=== PATIENT | male | born 1955 | race Caucasian/White ===

== ENCOUNTER 2017-09-01 09:38 | Inpatient (IN) | payer BC ==
[2017-09-01] MEDS: HYDROmorphone 2 MG/ML Syringe IV PRN ×2 (10:20→22:36)
[2017-09-01] MEDS ORDERED: Sodium Chloride 0.9% 10 ML Syringe FLUSH PRN (10:23)
[2017-09-01] MEDS ORDERED: Sodium Chloride 0.9% 500 ML IV SCH (10:30)
[2017-09-01] MEDS ORDERED: metroNIDAZOLE/Normal Saline 100 ML ONE (11:14)
[2017-09-01] MEDS: metroNIDAZOLE/Normal Saline 500 MG in Premix Bag 1 BAG IV SCH ×2 (11:18→18:27)
[2017-09-01] MEDS: Dextrose 5%-0.9% NaCl 1,000 ML IV SCH ×2 (12:33→22:45)
--- NOTE | 2017-09-01 12:52 | CR ---
DATE OF SERVICE: 09/01/2017 CLINICAL DATA: Pain in right ankle and joints of right foot. RIGHT ANKLE: No priors. There is soft tissue swelling over the medial and lateral malleoli. There is a mildly displaced oblique fracture through the distal fibular metaphysis. No other fractures. No dislocation. 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 There is a plantar calcaneal spur. IMPRESSION: Fracture distal fibula. Other findings as discussed above. [id number] [facility]
[2017-09-01] MEDS ORDERED: Nicotine 14 MG/24 Hr Patch ONE (13:21)
[2017-09-01] MEDS ORDERED: Ketorolac 30 MG/ML SDV ONE (14:41)
[2017-09-01] MEDS: Acetaminophen 650 MG Tab.ER PO SCH ×3 (14:45→23:10)
[2017-09-01] MEDS: Nicotine 14 MG/24 Hr Patch TRDERM SCH (14:57)
[2017-09-01] MEDS: Ciprofloxacin in D5W 400 MG in Premix Bag 1 BAG IV SCH ×2 (20:11)
[2017-09-01] MEDS: Dextrose 5%-0.9% NaCl with KCl 1,000 ML IV SCH (23:19)
[2017-09-02] MEDS: metroNIDAZOLE/Normal Saline 500 MG in Premix Bag 1 BAG IV SCH ×3 (02:09→19:23)
[2017-09-02] MEDS: Ketorolac 30 MG/ML SDV IVPUSH PRN (02:20)
[2017-09-02] MEDS ORDERED: Sodium Chloride 0.9% 500 ML IV ONE (03:30)
[2017-09-02] MEDS: Acetaminophen 650 MG Tab.ER PO SCH ×6 (06:16→19:37)
[2017-09-02] MEDS: Dextrose 5%-0.9% NaCl with KCl 1,000 ML IV SCH ×3 (07:54→19:59)
[2017-09-02] MEDS: Ciprofloxacin in D5W 400 MG in Premix Bag 1 BAG IV SCH ×2 (09:03)
--- NOTE | 2017-09-02 11:44 | PCM.PN ---
- General Info Date of Service: 09/02/17 Subjective Update: Pt claims he feels better today. Has been running fever. Had Second set of blood culture drawn at peak of fever last night. Has been on sips of clear liquids. Does have pain in the lower abdomen. No nausea or vomiting. No abdominal distension. Pt was constipated when he was admitted, has been having some lose stool since last night. semi-formed. Functional Status: Reports: Pain Controlled, Tolerating Diet (clesr liquid), Ambulating, Urinating - Review of Systems General: Reports: Fever, Weakness. Denies: Fatigue, Chills, Night Sweats HEENT: Denies: Sinus Congestion, Sore Throat, Rhinitis, Visual Changes Pulmonary: Denies: Shortness of Breath, Pleuritic Chest Pain, Cough, Sputum, Hemoptysis Cardiovascular: Denies: Chest Pain, Lightheadedness Gastrointestinal: Reports: Abdominal Pain, Diarrhea. Denies: Nausea, Vomiting Genitourinary: Denies: Frequency, Burning, Urgency, Hematuria Musculoskeletal: Reports: Foot Pain (right), Joint Swelling Skin: Denies: Bruising, Rash Neurological: Denies: Confusion, Dizziness, Headache, Numbness, Tingling - Patient Data Vitals - Most Recent: Last Vital Signs Temp 98.7 F 09/02/17 06:00 Pulse 73 09/02/17 06:00 Resp 18 09/02/17 06:00 BP 108/61 09/02/17 06:00 Pulse Ox 99 09/02/17 06:00 Weight - Most Recent: 66.86 kg I&O - Last 24 Hours: Intake & Output 09/01/17 09/02/17 09/02/17 22:59 06:59 14:59 Intake Total 3055 Output Total 1000 Balance 2054 Lab Results Last 24 Hours: Laboratory Results - last 24 hr 09/01/17 09/01/17 09/02/17 Range/Units 22:45 22:45 07:30 WBC 21.7 H* 21.1 H* (4.0-11.0) K/uL RBC 3.13 L 3.29 L (4.50-6.50) M/uL Hgb 9.7 L 10.2 L (13.0-18.0) g/dL Hct 27.7 L 29.0 L (40.0-54.0) % MCV 89 88 (76-96) fL MCH 31.0 31.0 (27.0-32.0) pg MCHC 35.0 35.2 H (31.0-35.0) g/dL RDW 13.1 13.4 (11.0-16.0) % Plt Count 413 H 444 H (150-400) K/uL MPV 8.6 8.9 (6.0-10.0) fL Neut % (Auto) 89.9 H 91.5 H (45.0-70.0) % Lymph % (Auto) 5.4 L 4.2 L (20.0-40.0) % [place] % (Auto) 4.7 4.2 (3.0-10.0) % Eos % (Auto) 0.0 L 0.1 L (1.0-5.0) % Baso % (Auto) 0.0 0.0 (0.0-0.5) % Neut # (Auto) 19.49 H 19.28 H (2.00-7.50) K/uL Lymph # (Auto) 1.17 L 0.88 L (1.50-4.00) K/uL [place] # (Auto) 1.03 H 0.88 H (0.20-0.80) K/uL Eos # (Auto) 0.00 L 0.02 L (0.04-0.40) K/uL Baso # (Auto) 0.01 L 0.01 L (0.02-0.10) K/uL Sodium (136-145) mmol/L Potassium (3.5-5.1) mmol/L Chloride (98-107) mmol/L Carbon Dioxide (21.0-32.0) mmol/L Anion Gap (5.0-15.0) mmol/L BUN (8-26) mg/dL Creatinine (0.70-1.30) mg/dL Est Cr Clr Drug Dosing mL/min Estimated GFR (MDRD) (>60) MLS/MIN BUN/Creatinine Ratio (6-25) Glucose (74-100) mg/dL Lactic Acid 1.00 (0.90-1.70) mmol/L Calcium (8.5-10.1) mg/dL Total Bilirubin (0.0-1.0) mg/dL AST (15-37) U/L ALT (12-78) U/L Alkaline Phosphatase (46-116) U/L Total Protein (6.4-8.2) g/dL Albumin (3.4-5.0) g/dL Globulin (2.2-4.2) g/dL Albumin/Globulin Ratio (0.8-2.0) 09/02/17 Range/Units 07:30 WBC (4.0-11.0) K/uL RBC (4.50-6.50) M/uL Hgb (13.0-18.0) g/dL Hct (40.0-54.0) % MCV (76-96) fL MCH (27.0-32.0) pg MCHC (31.0-35.0) g/dL RDW (11.0-16.0) % Plt Count (150-400) K/uL MPV (6.0-10.0) fL Neut % (Auto) (45.0-70.0) % Lymph % (Auto) (20.0-40.0) % [place] % (Auto) (3.0-10.0) % Eos % (Auto) (1.0-5.0) % Baso % (Auto) (0.0-0.5) % Neut # (Auto) (2.00-7.50) K/uL Lymph # (Auto) (1.50-4.00) K/uL [place] # (Auto) (0.20-0.80) K/uL Eos # (Auto) (0.04-0.40) K/uL Baso # (Auto) (0.02-0.10) K/uL Sodium 126 L (136-145) mmol/L Potassium 3.2 L (3.5-5.1) mmol/L Chloride 97 L (98-107) mmol/L Carbon Dioxide 19.8 L (21.0-32.0) mmol/L Anion Gap 12.4 (5.0-15.0) mmol/L BUN 16 D (8-26) mg/dL Creatinine 1.28 (0.70-1.30) mg/dL Est Cr Clr Drug Dosing 56.59 mL/min Estimated GFR (MDRD) 57 L (>60) MLS/MIN BUN/Creatinine Ratio 12.5 (6-25) Glucose 181 H (74-100) mg/dL Lactic Acid (0.90-1.70) mmol/L Calcium 8.9 (8.5-10.1) mg/dL Total Bilirubin 0.7 (0.0-1.0) mg/dL AST 18 (15-37) U/L ALT 16 (12-78) U/L Alkaline Phosphatase 82 (46-116) U/L Total Protein 7.6 (6.4-8.2) g/dL Albumin 1.4 L (3.4-5.0) g/dL Globulin 6.2 H (2.2-4.2) g/dL Albumin/Globulin Ratio 0.2 L (0.8-2.0) Donald Results Last 24 Hours: Microbiology 09/01/17 10:45 Aerobic Blood Culture - Preliminary Blood Gram Positive Cocci Anaerobic Blood Culture - Preliminary NO GROWTH AFTER 1 DAY Med Orders - Current: Current Medications Acetaminophen (Tylenol Arthritis Pain) 650 mg PO Q6HR [facility] Last Admin: 09/02/17 09:29 Dose: 650 mg Hydromorphone HCl (Dilaudid) 1 mg IV Q6H PRN PRN Reason: Pain Last Admin: 09/01/17 22:36 Dose: 1 mg Sodium Chloride (Normal Saline) 500 mls @ 999 mls/hr IV .BOLUS [facility] Last Admin: 09/01/17 10:20 Dose: 999 mls/hr Ciprofloxacin/Dextrose 400 mg/ (Premix) 200 mls @ 200 mls/hr IV Q12H [facility] Last Admin: 09/02/17 09:03 Dose: 200 mls/hr Dextrose/Sodium Chloride (Dextrose 5%-Normal Saline) 1,000 mls @ 125 mls/hr IV ASDIRECTED [facility] Last Admin: 09/01/17 22:45 Dose: 125 mls/hr Metronidazole 500 mg/ Premix 100 mls @ 100 mls/hr IV Q8H [facility] Last Admin: 09/02/17 10:24 Dose: 100 mls/hr Potassium Chloride/Dextrose/Sod Cl (D5 Ns With 20 Meq Kcl) 1,000 mls @ 150 mls/ hr IV ASDIRECTED [facility] Last Admin: 09/02/17 07:54 Dose: 150 mls/hr Ketorolac Tromethamine (Toradol) 30 mg IVPUSH Q8H PRN PRN Reason: Abdominal Pain Stop: 09/06/17 14:44 Last Admin: 09/02/17 02:20 Dose: 30 mg Nicotine (Habitrol) 14 mg TRDERM Q24H [facility] Last Admin: 09/01/17 14:57 Dose: Not Given Sodium Chloride (Saline Flush) 10 ml FLUSH ASDIRECTED PRN PRN Reason: Keep Vein Open Discontinued Medications Metronidazole (Flagyl 500 Mg In Ns 100 Ml) Confirm Administered Dose 100 mls @ as directed .ROUTE .STK-MED ONE Stop: 09/01/17 11:15 Last Admin: 09/01/17 11:26 Dose: Not Given Sodium Chloride (Normal Saline) 500 mls @ 999 mls/hr IV .BOLUS ONE Stop: 09/02/17 04:00 Last Admin: 09/02/17 03:34 Dose: 999 mls/hr Ketorolac Tromethamine (Toradol) Confirm Administered Dose 30 mg .ROUTE .STK- MED ONE Stop: 09/01/17 14:42 Last Admin: 09/01/17 14:45 Dose: 30 mg Nicotine (Habitrol) Confirm Administered Dose 14 mg .ROUTE .STK-MED ONE Stop: 09/01/17 13:22 Last Admin: 09/01/17 14:49 Dose: Not Given - Exam Quality Assessment: DVT Prophylaxis General: Alert, Oriented HEENT: Pupils Equal, Pupils Reactive, EOMI, Mucous Membr. Moist/[place] Neck: Supple Lungs: Clear to Auscultation, Normal Respiratory Effort Cardiovascular: Regular Rate, Regular Rhythm GI/Abdominal Exam: Normal Bowel Sounds, Soft, No Organomegaly, No Distention, Tender (LLQ). No: Guarding, Rigid, Rebound Extremities: Normal Inspection, Normal Range of Motion, Other (right ankle in ankle strap) Skin: Warm, Intact Neurological: No New Focal Deficit Psy/Mental Status: Alert, Normal Affect, Normal Mood - Problem List & Annotations (1) Diverticulitis of sigmoid colon SNOMED Code(s): 850531959 Code(s): K57.32 - DVTRCLI OF LG INT W/O PERFORATION OR ABSCESS W/O BLEEDING Status: Acute Current Visit: Yes (2) Hyponatremia SNOMED Code(s): 25792361 Code(s): E87.1 - HYPO-OSMOLALITY AND HYPONATREMIA Status: Acute Current Visit: Yes (3) Closed fibular fracture SNOMED Code(s): 068938641 Code(s): S82.409A - UNSP FRACTURE OF SHAFT OF UNSP FIBULA, INIT FOR CLOS FX Status: Acute Current Visit: Yes - Problem List Review Problem List Initiated/Reviewed/Updated: Yes - My Orders Last 24 Hours: My Active Orders 09/01/17 10:45 CULTURE BLOOD [BC] Stat 09/01/17 10:58 Abdomen Pelvis w Cont [CT] Routine 09/01/17 13:30 Nicotine [Habitrol] 14 mg TRDERM Q24H 09/01/17 13:46 Abdomen Pelvis wo Cont [CT] Urgent 09/01/17 14:43 Ketorolac [Toradol] 30 mg IVPUSH Q8H PRN 09/01/17 14:45 Acetaminophen [Tylenol Arthritis Pain] 650 mg PO Q6HR 09/01/17 20:00 Ciprofloxacin in D5W [Cipro in D5W 400 MG/200 ML] 400 mg Premix Bag 1 bag IV Q12H 09/01/17 22:45 CULTURE BLOOD [BC] Routine 09/01/17 23:15 Dextrose 5%-0.9% NaCl with KCl [D5 NS with 20 mEq KCl] 1,000 ml IV ASDIRECTED 09/02/17 07:52 CULTURE MRSA SURVEY [RM] Routine - Assessment Assessment:: Sigmoid Diverticulitis with leucocytosis Hyponatremia with mild hypokalemia Right distal fibular undisplaced fracture Hypoalbuminemia - Plan Plan:: 1) Sigmoid Diverticulitis with lecuocytosis: Pt's clinically has been feeling better. Since last night he has been having diarrhea, few times. He was constipated when he w admitted. Diarrhea is secondary to his diverticulitis. His white count today is 21.1 down from 24.4 yesterday.It has been only 24 hrs since starting the antibiotics. He has been spiking fever. His Tc and T max is 101.7F. He tripathi no new symptoms of abdominal distension, nausea or vomiting. Blood culture shows Gram positive cocci. Will continue present antibiotic regime , until culture results available. 2) hyponatremia and hypokalemia: Pt's Sodium is 126 and his potassium is 3.2 Possible cause is diverticulitis with decrease colonic absorption of the electrolyte and loss of electrolyte form diarrhea. Inflamed colon looses more electrolytes. Will continue IV fluids. As he is not feeding much will keep him on dextrose. Should correct with resolving diverticulitis. 3) Rigth distal fibular fracture: stable in ankle strap. Okay to weight bear. 4) hypoalbuminemia: pt's albumin is 1.4 which can be secondary to his chronic poor nutrition. Will encourage albumin rich diet, once his diverticulitis resolves. Will repeat CBC and CMP in Am.
[2017-09-02] MEDS ORDERED: Ampicillin/Sulbactam Na 3 GM in Sodium Chloride 0.9% 100 ML IV ONE (13:51)
--- NOTE | 2017-09-02 13:55 | PCM.SN ---
- Free Text/Narrative Note: Pt has spiked a temp of 104F now.. His blood culture has been growing gram positive cocci, which appears like strep. As strep is susceptible to penicillins and pt is starting to spike high grade fever, I have empirically started patient on Unasyn assuming, it is strep species. Cipro has been discontinued.
[2017-09-02] MEDS ORDERED: Ampicillin/Sulbactam Na 3 GM in Sodium Chloride 0.9% 50 ML IV SCH (14:00)
[2017-09-02] MEDS: Lactobacillus Acidophilus/Lactobacillus Sporogenes (Probiotic) Tab PO SCH (14:23)
[2017-09-02] MEDS: Nicotine 14 MG/24 Hr Patch TRDERM SCH (14:25)
--- NOTE | 2017-09-02 17:22 | PCM.SN ---
- Free Text/Narrative Note: Pt did spike a temp of 104F today afternoon, which was concerning. Also at the same time Lab did notify me of the preliminary blood culture report, which was isolated as streptococcal species. Hence cipro was discontinue and Unasyn was started. He has had sharp spike of fever since then. His fever makes me feels like there might be one of the two things going on with this patient. 1) he might be having worsening of his symptoms from him being on the empiric treatment of diverticulitis and the antibiotics not covering the strep, could have cause the fever spike. OR 2) the diverticulitis could have turned into a diverticulitis abscess. Pt does not appear toxic, so the plan is to wait for the morning labs. IF his white count is improving we are on the right track and his infection should resolve with present antibiotic regime. If the white count is elevated or if he continue to spike frequent high grade fever, will get CT of pelvis with contrast to make sure there is a diverticular abscess. It has been less than 48 hrs of antibiotics presently to come into any conclusion.
[2017-09-02] MEDS: Ampicillin/Sulbactam Na 1.5 GM in Sodium Chloride 0.9% 50 ML IV SCH ×2 (19:38→21:02)
[2017-09-02] MEDS: HYDROmorphone 2 MG/ML Syringe IV PRN (20:09)
[2017-09-03] MEDS: Acetaminophen 650 MG Tab.ER PO SCH ×6 (00:14→23:31)
[2017-09-03] MEDS: Ampicillin/Sulbactam Na 1.5 GM in Sodium Chloride 0.9% 50 ML IV SCH ×5 (01:56→21:40)
[2017-09-03] MEDS: Ketorolac 30 MG/ML SDV IVPUSH PRN ×2 (02:01→21:00)
[2017-09-03] MEDS: metroNIDAZOLE/Normal Saline 500 MG in Premix Bag 1 BAG IV SCH ×3 (02:32→18:48)
[2017-09-03] MEDS: Dextrose 5%-0.9% NaCl 1,000 ML IV SCH (02:45)
[2017-09-03] MEDS: Lactobacillus Acidophilus/Lactobacillus Sporogenes (Probiotic) Tab PO SCH (07:38)
[2017-09-03] MEDS ORDERED: D5 1/2 NS w/ 20 mEq/L KCl 1,000 ML ONE (08:07)
[2017-09-03] MEDS ORDERED: Heparin Sodium 5,000 Units/ML Vial ONE (08:47)
[2017-09-03] MEDS: Heparin Sodium 5,000 Units/ML Vial SUBCUT SCH ×2 (09:10→21:17)
[2017-09-03] MEDS: D5%-0.9% NaCl w/ KCl 40 meq 1,000 ML IV SCH ×2 (09:12→17:49)
--- NOTE | 2017-09-03 09:33 | PCM.PN ---
- General Info Date of Service: 09/03/17 Subjective Update: Pt has had fever all night, but his fever has finally broke. His TMax is 105F and Tc of 99F. He has had few 2-3 loose stools last night. His abdominal pain is better today. No nausea or vomiting. No new symptoms or complaints. - Review of Systems General: Reports: Fever, Weakness, Malaise. Denies: Fatigue, Chills HEENT: Denies: Headaches, Sinus Congestion, Sore Throat Pulmonary: Denies: Shortness of Breath, Cough, Sputum, Hemoptysis Cardiovascular: Denies: Chest Pain, Lightheadedness Gastrointestinal: Reports: Abdominal Pain, Diarrhea. Denies: Flatus, Nausea, Vomiting Genitourinary: Denies: Frequency, Burning, Flank Pain Musculoskeletal: Reports: Joint Pain (rigth ankle) Skin: Denies: Bruising, Pruritis Neurological: Reports: No Symptoms Psychiatric: Reports: No Symptoms - Patient Data Vitals - Most Recent: Last Vital Signs Temp 99.9 F 09/03/17 03:45 Pulse 87 09/03/17 02:10 Resp 20 09/03/17 02:10 BP 114/64 09/03/17 02:10 Pulse Ox 100 09/03/17 02:10 Weight - Most Recent: 66.86 kg I&O - Last 24 Hours: Intake & Output 09/02/17 09/03/17 09/03/17 22:59 06:59 14:59 Intake Total 2950 3700 Output Total 700 Balance 2250 3700 Lab Results Last 24 Hours: Laboratory Results - last 24 hr 09/03/17 09/03/17 Range/Units 07:25 07:25 WBC 19.5 H (4.0-11.0) K/uL RBC 3.09 L (4.50-6.50) M/uL Hgb 9.4 L (13.0-18.0) g/dL Hct 27.1 L (40.0-54.0) % MCV 88 (76-96) fL MCH 30.4 (27.0-32.0) pg MCHC 34.7 (31.0-35.0) g/dL RDW 13.5 (11.0-16.0) % Plt Count 464 H (150-400) K/uL MPV 9.1 (6.0-10.0) fL Neut % (Auto) 91.4 H (45.0-70.0) % Lymph % (Auto) 4.5 L (20.0-40.0) % [place] % (Auto) 3.9 (3.0-10.0) % Eos % (Auto) 0.1 L (1.0-5.0) % Baso % (Auto) 0.1 (0.0-0.5) % Neut # (Auto) 17.84 H (2.00-7.50) K/uL Lymph # (Auto) 0.88 L (1.50-4.00) K/uL [place] # (Auto) 0.77 (0.20-0.80) K/uL Eos # (Auto) 0.02 L (0.04-0.40) K/uL Baso # (Auto) 0.02 (0.02-0.10) K/uL Sodium 135 L (136-145) mmol/L Potassium 3.2 L (3.5-5.1) mmol/L Chloride 107 (98-107) mmol/L Carbon Dioxide 18.3 L (21.0-32.0) mmol/L Anion Gap 12.9 (5.0-15.0) mmol/L BUN 12 D (8-26) mg/dL Creatinine 1.11 (0.70-1.30) mg/dL Est Cr Clr Drug Dosing 65.25 mL/min Estimated GFR (MDRD) > 60 (>60) MLS/MIN BUN/Creatinine Ratio 10.8 (6-25) Glucose 162 H (74-100) mg/dL Calcium 8.4 L (8.5-10.1) mg/dL Total Bilirubin 0.4 D (0.0-1.0) mg/dL AST 17 (15-37) U/L ALT 14 (12-78) U/L Alkaline Phosphatase 81 (46-116) U/L Total Protein 6.7 (6.4-8.2) g/dL Albumin 1.3 L (3.4-5.0) g/dL Globulin 5.4 H (2.2-4.2) g/dL Albumin/Globulin Ratio 0.2 L (0.8-2.0) Donald Results Last 24 Hours: Microbiology 09/01/17 22:45 Aerobic Blood Culture - Preliminary Blood NO GROWTH AFTER 1 DAY Anaerobic Blood Culture - Preliminary NO GROWTH AFTER 1 DAY 09/01/17 10:45 Aerobic Blood Culture - Preliminary Blood Gram Positive Cocci Anaerobic Blood Culture - Preliminary NO GROWTH AFTER 1 DAY Med Orders - Current: Current Medications Acetaminophen (Tylenol Arthritis Pain) 650 mg PO Q6HR [facility] Last Admin: 09/03/17 02:02 Dose: 650 mg Heparin Sodium (Porcine) (Heparin Sodium) 5,000 units SUBCUT Q12HR [facility] Last Admin: 09/03/17 09:10 Dose: 5,000 units Hydromorphone HCl (Dilaudid) 1 mg IV Q6H PRN PRN Reason: Pain Last Admin: 09/02/17 20:09 Dose: 1 mg Sodium Chloride (Normal Saline) 500 mls @ 999 mls/hr IV .BOLUS [facility] Last Admin: 09/01/17 10:20 Dose: 999 mls/hr Dextrose/Sodium Chloride (Dextrose 5%-Normal Saline) 1,000 mls @ 125 mls/hr IV ASDIRECTED [facility] Last Admin: 09/03/17 02:45 Dose: 125 mls/hr Metronidazole 500 mg/ Premix 100 mls @ 100 mls/hr IV Q8H [facility] Last Admin: 09/03/17 02:32 Dose: 100 mls/hr Ampicillin Sodium/Sulbactam (Sodium 1.5 gm/ Sodium Chloride) 50 mls @ 100 mls/ hr IV Q6H [facility] Last Admin: 09/03/17 07:41 Dose: 100 mls/hr Potassium Chloride/Dextrose/Sod Cl (D5 Ns With 40 Meq Kcl) 1,000 mls @ 150 mls/ hr IV ASDIRECTED [facility] Last Admin: 09/03/17 09:12 Dose: 150 mls/hr Ketorolac Tromethamine (Toradol) 30 mg IVPUSH Q8H PRN PRN Reason: Abdominal Pain Stop: 09/06/17 14:44 Last Admin: 09/03/17 02:01 Dose: 30 mg Lactobacillus Acidophilus (Acidolphilus Extra Strength) 1 tab PO DAILY [facility] Last Admin: 09/03/17 07:38 Dose: 1 tab Nicotine (Habitrol) 14 mg TRDERM Q24H [facility] Last Admin: 09/02/17 14:25 Dose: Not Given Sodium Chloride (Saline Flush) 10 ml FLUSH ASDIRECTED PRN PRN Reason: Keep Vein Open Last Admin: 09/02/17 19:53 Dose: 10 ml Discontinued Medications Heparin Sodium (Porcine) (Heparin Sodium) Confirm Administered Dose 5,000 units .ROUTE .STK-MED ONE Stop: 09/03/17 08:48 Last Admin: 09/03/17 09:11 Dose: Not Given Ciprofloxacin/Dextrose 400 mg/ (Premix) 200 mls @ 200 mls/hr IV Q12H [facility] Last Admin: 09/02/17 09:03 Dose: 200 mls/hr Metronidazole (Flagyl 500 Mg In Ns 100 Ml) Confirm Administered Dose 100 mls @ as directed .ROUTE .STK-MED ONE Stop: 09/01/17 11:15 Last Admin: 09/01/17 11:26 Dose: Not Given Potassium Chloride/Dextrose/Sod Cl (D5 Ns With 20 Meq Kcl) 1,000 mls @ 150 mls/ hr IV ASDIRECTED [facility] Last Admin: 09/02/17 19:59 Dose: 150 mls/hr Sodium Chloride (Normal Saline) 500 mls @ 999 mls/hr IV .BOLUS ONE Stop: 09/02/17 04:00 Last Admin: 09/02/17 03:34 Dose: 999 mls/hr Ampicillin Sodium/Sulbactam (Sodium 1.5 gm/ Sodium Chloride) 50 mls @ 100 mls/ hr IV Q6HR [facility] Last Admin: 09/03/17 05:41 Dose: Not Given Ampicillin Sodium/Sulbactam (Sodium 3 gm/ Sodium Chloride) 50 mls @ 100 mls/hr IV ASDIRECTED [facility] Stop: 09/02/17 18:00 Last Admin: 09/02/17 14:17 Dose: 100 mls/hr Potassium Chloride/Dextrose/Sod Cl (D5 1/2 Ns W/ 20 Meq/L Kcl) Confirm Administered Dose 1,000 mls @ as directed .ROUTE .STK-MED ONE Stop: 09/03/17 08:08 Last Admin: 09/03/17 09:12 Dose: Not Given Ketorolac Tromethamine (Toradol) Confirm Administered Dose 30 mg .ROUTE .STK- MED ONE Stop: 09/01/17 14:42 Last Admin: 09/01/17 14:45 Dose: 30 mg Nicotine (Habitrol) Confirm Administered Dose 14 mg .ROUTE .STK-MED ONE Stop: 09/01/17 13:22 Last Admin: 09/01/17 14:49 Dose: Not Given - Exam Quality Assessment: DVT Prophylaxis. No: Skin Breakdown General: Alert, Oriented HEENT: Pupils Equal, Pupils Reactive, EOMI, Mucous Membr. Moist/[place] Neck: Supple Lungs: Clear to Auscultation, Normal Respiratory Effort Cardiovascular: Regular Rate, Regular Rhythm GI/Abdominal Exam: Normal Bowel Sounds, Soft, No Organomegaly, No Distention, No Mass, Tender (LLQ). No: Guarding, Rigid, Rebound Extremities: Normal Inspection (HAs left ankle strap. Tender over lateral malloelus) - Problem List & Annotations (1) Diverticulitis of sigmoid colon SNOMED Code(s): 060331010 Code(s): K57.32 - DVTRCLI OF LG INT W/O PERFORATION OR ABSCESS W/O BLEEDING Status: Acute Current Visit: Yes (2) Hyponatremia SNOMED Code(s): 74738664 Code(s): E87.1 - HYPO-OSMOLALITY AND HYPONATREMIA Status: Acute Current Visit: Yes (3) Closed fibular fracture SNOMED Code(s): 685299862 Code(s): S82.409A - UNSP FRACTURE OF SHAFT OF UNSP FIBULA, INIT FOR CLOS FX Status: Acute Current Visit: Yes - Problem List Review Problem List Initiated/Reviewed/Updated: Yes - My Orders Last 24 Hours: My Active Orders 09/02/17 14:06 CULTURE BLOOD [BC] Routine 09/02/17 15:40 CULTURE MRSA SURVEY [RM] Routine 09/03/17 08:00 Ampicillin/Sulbactam Na [Unasyn] 1.5 gm Sodium Chloride 0.9% [Normal Saline] 50 ml IV Q6H 09/03/17 08:45 D5%-0.9% NaCl w/ KCl 40 meq [D5 NS with 40 mEq KCl] 1,000 ml IV ASDIRECTED 09/03/17 20:00 Heparin Sodium 5,000 units SUBCUT Q12HR 09/04/17 07:30 CBC WITH AUTO DIFF [HEME] Routine COMPREHENSIVE METABOLIC PN,CMP [CHEM] Routine - Assessment Assessment:: Sigmoid Diverticulitis with leucocytosis Hyponatremia with mild hypokalemia Right distal fibular undisplaced fracture Hypoalbuminemia - Plan Plan:: 1) Sigmoid Diverticulitis with lecuocytosis: Pt's clinically has been feeling better. Since last night he has been having diarrhea, few times. He was constipated when he w admitted. Diarrhea is secondary to his diverticulitis. His white count today is 21.1 down from 24.4 yesterday.It has been only 24 hrs since starting the antibiotics. He has been spiking fever. His Tc and T max is 101.7F. He tripathi no new symptoms of abdominal distension, nausea or vomiting. Blood culture shows Gram positive cocci. Will continue present antibiotic regime , until culture results available. 2) hyponatremia and hypokalemia: Pt's Sodium is 126 and his potassium is 3.2 Possible cause is diverticulitis with decrease colonic absorption of the electrolyte and loss of electrolyte form diarrhea. Inflamed colon looses more electrolytes. Will continue IV fluids. As he is not feeding much will keep him on dextrose. Should correct with resolving diverticulitis. 3) Rigth distal fibular fracture: stable in ankle strap. Okay to weight bear. 4) hypoalbuminemia: pt's albumin is 1.4 which can be secondary to his chronic poor nutrition. Will encourage albumin rich diet, once his diverticulitis resolves. Will repeat CBC and CMP in Am. 09/03/17 1) Sigmoid Diverticulitis:Pt has had high grade fever yesterday. Fever seems to be breaking at this point. Clinically, patient claims he feels better. Still has lose stool. No nausea or vomiting. Will continue unasyn and flagyl. His white count is 19.5 k today,as his white count is resolving, I do feels his diverticulitis is improving. But if he spike high grade fever over 103F, I do want to have CT pelvis with IV contrast done to rule out intra-abdominal abscess. 2) Hyponatremia and hypokalemia: his sodium is starting to improve it ws 136 today. Also his potassium has remained at 3.2. I have changed his IV fluid to D5NS with 40meq of KCL. 3) Right Distal fibular fracture: in ankle strap, will change it to walking boot. Pt has lower extremity fracture, decreased mobility and acutely ill. I have started him on heparin 5000 S/C BID for DVT prophylaxis. I am still debating on Parental nutrition. will see how his day goes by today. Still waiting on blood culture results.Will followup with CBC and CMP in the morning.
[2017-09-03] MEDS: HYDROmorphone 2 MG/ML Syringe IV PRN (14:06)
[2017-09-03] MEDS: Nicotine 14 MG/24 Hr Patch TRDERM SCH (16:04)
--- NOTE | 2017-09-03 17:40 | CT ---
DATE OF SERVICE: 09/01/17 CLINICAL DATA: LLQ pain with leucocytosis ENHANCED ABDOMEN AND PELVIC CT: Multislice acquisition through the abdomen and pelvis with IV and oral contrast was performed. Comparison is made to a prior abdomen and pelvic CT dated 03/08/15. Breathing motion artifact does degrade image quality. The irregular-shaped pleural parenchymal density within the lingular segment of the left upper lobe is again seen. It is unchanged from the prior exam. There is new pleural thickening within the lower left hemithorax noted medially and posteromedially. There are also linear densities in the left lung base not present on the prior exam consistent with linear atelectasis or fibrosis. These are probably related to a prior infectious or inflammatory process. A pleural-based malignant process should at least be considered and followup imaging in four to six months is recommended to evaluate for stability. There is mild diffuse fatty infiltration of the liver. No focal hepatic lesions. The gallbladder appears normal. No biliary duct dilatation. The spleen appears normal. The pancreas appears normal. There is mild soft tissue fullness of both adrenal glands suggesting adrenal hyperplasia. No adrenal masses. There is a 3.6 cm rounded fluid density lesion in the lower pole of the left kidney consistent in appearance with a benign renal cyst. It is unchanged from the prior CT. The right and left kidneys otherwise appear normal. No nephrocalcinosis or nephrolithiasis. No hydronephrosis or hydroureter. The bladder is partially fluid-filled. There is mild bladder wall thickening. This is most likely related to nondistension. Cystitis should be considered. No evidence of appendicitis. There is moderate diverticulosis of the descending colon and severe diverticulosis of the sigmoid colon. There is also minimal perisigmoidal fat stranding. Mild or early diverticulitis is suspected. There is also mural thickening throughout the proximal and mid sigmoid colon. No evidence of a diverticular abscess. There are enlarged para-aortic retroperitoneal nodes. The largest measures 16 mm in its short axis. Not significantly changed from the prior exam. No free air. No free fluid. No dilated loops of bowel. There is a right inguinal hernia containing fat. IMPRESSION: 1) New pleural thickening within the left hemithorax as discussed above. This is probably related to an infectious or inflammatory process. A pleural-based malignancy should at least be considered and followup imaging in four to six months is recommended to evaluate for stability. 2) Diverticulosis. Mild perisigmoidal fat stranding adjacent to proximal and mid sigmoid colon suggesting early or mild diverticulitis. No evidence of diverticular abscess. There is mural thickening throughout the proximal and mid sigmoid colon, most likely related to chronic diverticular disease or diverticulitis. The possibility of an infiltrating process should at least be considered and colonoscopy after treatment is recommended. 3) Bladder wall thickening. This is probably related to nondistension. Cystitis should be considered. 4) Multiple other findings as discussed above. [id number] [facility]
--- NOTE | 2017-09-03 17:44 | CT ---
DATE OF SERVICE: 09/01/17 at 1404 hours CLINICAL DATA: abd pain dye had not reached lower abd on 1st exam ABDOMEN AND PELVIC CT: Delayed imaging through the abdomen and pelvis was performed. There is oral contrast noted within the small bowel and colon. There is contrast noted in the renal collecting systems secondary to the prior enhanced CT. Again noted is the moderate diverticulosis of the descending colon and severe diverticulosis of the sigmoid colon. There is marked mural thickening within the proximal and mid sigmoid colon. There is also mild perisigmoidal fat stranding. Again, these findings are consistent with diverticulitis. Again, the possibility of an infiltrating process cannot be completely excluded and colonoscopy after treatment is recommended. No evidence of diverticular abscess. No free air. No free fluid. The remainder of the exam is unchanged from the prior. [id number] [facility]
[2017-09-03] MEDS ORDERED: metroNIDAZOLE/Normal Saline 100 ML ONE (17:58)
[2017-09-03] MEDS ORDERED: D5 1/2 NS w/ 40 mEq/L KCl 1,000 ML ONE (22:58)
[2017-09-03] MEDS ORDERED: Sodium Chloride 0.9% with KCl 1,000 ML IV SCH (23:15)
[2017-09-04] MEDS: metroNIDAZOLE/Normal Saline 500 MG in Premix Bag 1 BAG IV SCH ×2 (05:39→10:45)
[2017-09-04] MEDS: Ampicillin/Sulbactam Na 1.5 GM in Sodium Chloride 0.9% 50 ML IV SCH ×3 (05:39→12:51)
[2017-09-04] MEDS: Heparin Sodium 5,000 Units/ML Vial SUBCUT SCH (07:54)
[2017-09-04] MEDS: Lactobacillus Acidophilus/Lactobacillus Sporogenes (Probiotic) Tab PO SCH (07:55)
[2017-09-04] MEDS: Acetaminophen 650 MG Tab.ER PO SCH (07:55)
[2017-09-04] MEDS ORDERED: Insulin Glargine,Human Rec. Analog 100 Units/ML 3 ML Pen SUBCUT SCH (08:00)
--- NOTE | 2017-09-04 08:24 | CR ---
DATE OF SERVICE: 09/03/2017 CLINICAL DATA: Question osteomyelitis. RIGHT ANKLE: There is soft tissue swelling over the medial and lateral malleoli. 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 There is a plantar calcaneal spur. No acute abnormalities. No lytic or blastic bone lesions. [id number] [facility]
[2017-09-04] MEDS ORDERED: Sodium Chloride 0.9% 50 ML SDV FLUSH ONE (09:05)
[2017-09-04] MEDS ORDERED: Iopamidol 612 MG/ML 100 ML Bottle IV SCH (09:15)
[2017-09-04] MEDS ORDERED: Diatrizoate Meglumine/Diatrizoate Sodium 37% 30 ML Bottle PO SCH (09:15)
[2017-09-04] MEDS ORDERED: Ondansetron 4 MG/2 ML SDV IVPUSH PRN (10:41)
[2017-09-04] MEDS: HYDROmorphone 2 MG/ML Syringe IV PRN (10:51)
--- NOTE | 2017-09-04 13:37 | PCM.DCSUM1 ---
Discharge Summary - Hospital Course Free Text/Narrative:: Patient is a 62 year old man with diverticulitis, Strep pneumonia sepsis, Right ankle fracture with right lower leg edema and cellulitis who was admitted to [facility] on 09-01-17. He was given Cipro and Flagyl at first IV, was changed to Unasyn once blood cultures came back with Strep Pneumonia and he has not gotten better on either regimen of antibiotics. He will be transfered to [facility] in [place] for further evaluation and treatment. - Discharge Data Discharge Date: 09/04/17 Discharge Disposition: DC/Tfer to Acute Hospital 02 Condition: Good - Discharge Plan Home Medications: Home Meds Ibuprofen [Motrin] 800 mg PO TID 09/01/17 [History] Multivitamin [Multi-Day Vitamins] 1 each PO DAILY 09/01/17 [History] - General Info Date of Service: 09/04/17 Functional Status: Reports: Other (Still has some pain in the lower abdomen and in his right ankle area.) - Review of Systems General: Reports: Fever, Malaise, Chills HEENT: Reports: No Symptoms Pulmonary: Reports: No Symptoms Cardiovascular: Reports: No Symptoms Gastrointestinal: Reports: Abdominal Pain Genitourinary: Reports: No Symptoms Musculoskeletal: Reports: Foot Pain, Joint Pain Skin: Reports: Rash Neurological: Reports: No Symptoms Psychiatric: Reports: No Symptoms - Patient Data Vitals - Most Recent: Last Vital Signs Temp 37.7 C 09/04/17 12:00 Pulse 73 09/04/17 12:00 Resp 20 09/04/17 12:00 BP 128/73 09/04/17 12:00 Pulse Ox 97 09/04/17 12:00 Weight - Most Recent: 66.678 kg I&O - Last 24 hours: Intake & Output 09/03/17 09/04/17 09/04/17 22:59 06:59 14:59 Intake Total 1780 Balance 1780 Lab Results - Last 24 hrs: Laboratory Results - last 24 hr 09/03/17 09/04/17 09/04/17 Range/Units 21:30 05:40 05:40 WBC 18.1 H 20.9 H* (4.0-11.0) K/uL RBC 2.99 L 3.23 L (4.50-6.50) M/uL Hgb 9.2 L 9.9 L (13.0-18.0) g/dL Hct 26.5 L 28.5 L (40.0-54.0) % MCV 89 88 (76-96) fL MCH 30.8 30.7 (27.0-32.0) pg MCHC 34.7 34.7 (31.0-35.0) g/dL RDW 13.6 13.7 (11.0-16.0) % Plt Count 459 H 482 H (150-400) K/uL MPV 8.9 8.9 (6.0-10.0) fL Neut % (Auto) 91.1 H 86.9 H (45.0-70.0) % Lymph % (Auto) 5.1 L 8.5 L (20.0-40.0) % [place] % (Auto) 3.5 4.2 (3.0-10.0) % Eos % (Auto) 0.2 L 0.3 L (1.0-5.0) % Baso % (Auto) 0.1 0.1 (0.0-0.5) % Neut # (Auto) 16.52 H 18.17 H (2.00-7.50) K/uL Lymph # (Auto) 0.92 L 1.78 (1.50-4.00) K/uL [place] # (Auto) 0.63 0.88 H (0.20-0.80) K/uL Eos # (Auto) 0.04 0.06 (0.04-0.40) K/uL Baso # (Auto) 0.02 0.02 (0.02-0.10) K/uL Sodium 135 L (136-145) mmol/L Potassium 3.9 D (3.5-5.1) mmol/L Chloride 109 H (98-107) mmol/L Carbon Dioxide 15.6 L (21.0-32.0) mmol/L Anion Gap 14.3 (5.0-15.0) mmol/L BUN 13 (8-26) mg/dL Creatinine 1.10 (0.70-1.30) mg/dL Est Cr Clr Drug Dosing 65.67 mL/min Estimated GFR (MDRD) > 60 (>60) MLS/MIN BUN/Creatinine Ratio 11.8 (6-25) Glucose 120 H (74-100) mg/dL Calcium 8.4 L (8.5-10.1) mg/dL Total Bilirubin 0.4 (0.0-1.0) mg/dL AST 32 (15-37) U/L ALT 18 (12-78) U/L Alkaline Phosphatase 105 (46-116) U/L Total Protein 7.1 (6.4-8.2) g/dL Albumin 1.3 L (3.4-5.0) g/dL Globulin 5.8 H (2.2-4.2) g/dL Albumin/Globulin Ratio 0.2 L (0.8-2.0) ALICJA Results - Last 24 hrs: Microbiology 09/01/17 22:45 Aerobic Blood Culture - Final Blood Streptococcus Pneumoniae Anaerobic Blood Culture - Preliminary NO GROWTH AFTER 2 DAYS 09/02/17 14:06 Aerobic Blood Culture - Preliminary Blood NO GROWTH AFTER 1 DAY Anaerobic Blood Culture - Preliminary NO GROWTH AFTER 1 DAY 09/03/17 10:30 Clostridium difficile (PCR) - Final Stool / Feces - Stool, Liquid 09/02/17 15:40 MRSA Surveillance Culture - Final Nares, Right NO MRSA ISOLATED 09/01/17 10:45 Aerobic Blood Culture - Final Blood Streptococcus Pneumoniae Anaerobic Blood Culture - Final Streptococcus Pneumoniae Med Orders - Current: Current Medications Acetaminophen (Tylenol Arthritis Pain) 650 mg PO Q6HR [facility] Last Admin: 09/04/17 07:55 Dose: 650 mg Diatrizoate Meglum/Diatrizoate Sod (Gastrografin 37%) 30 ml PO . DIRECTED [facility] Heparin Sodium (Porcine) (Heparin Sodium) 5,000 units SUBCUT Q12HR [facility] Last Admin: 09/04/17 07:54 Dose: 5,000 units Hydromorphone HCl (Dilaudid) 1 mg IV Q6H PRN PRN Reason: Pain Last Admin: 09/04/17 10:51 Dose: 1 mg Sodium Chloride (Normal Saline) 500 mls @ 999 mls/hr IV .BOLUS [facility] Last Admin: 09/01/17 10:20 Dose: 999 mls/hr Dextrose/Sodium Chloride (Dextrose 5%-Normal Saline) 1,000 mls @ 125 mls/hr IV ASDIRECTED [facility] Last Admin: 09/03/17 02:45 Dose: 125 mls/hr Metronidazole 500 mg/ Premix 100 mls @ 100 mls/hr IV Q8H [facility] Last Admin: 09/04/17 10:45 Dose: 100 mls/hr Ampicillin Sodium/Sulbactam (Sodium 1.5 gm/ Sodium Chloride) 50 mls @ 100 mls/ hr IV Q6H [facility] Last Admin: 09/04/17 12:51 Dose: 100 mls/hr Potassium Chloride/Sodium Chloride (Normal Saline With 40 Meq Kcl) 1,000 mls @ 150 mls/hr IV ASDIRECTED [facility] Iopamidol (Isovue-300 (61%)) 100 ml IV . DIRECTED [facility] Ketorolac Tromethamine (Toradol) 30 mg IVPUSH Q8H PRN PRN Reason: Abdominal Pain Stop: 09/06/17 14:44 Last Admin: 09/03/17 21:00 Dose: 30 mg Lactobacillus Acidophilus (Acidolphilus Extra Strength) 1 tab PO DAILY [facility] Last Admin: 09/04/17 07:55 Dose: 1 tab Nicotine (Habitrol) 14 mg TRDERM Q24H [facility] Last Admin: 09/03/17 16:04 Dose: Not Given Ondansetron HCl (Zofran) 4 mg IVPUSH Q4H PRN PRN Reason: Nausea/Vomiting Last Admin: 09/04/17 10:53 Dose: 4 mg Sodium Chloride (Saline Flush) 10 ml FLUSH ASDIRECTED PRN PRN Reason: Keep Vein Open Last Admin: 09/02/17 19:53 Dose: 10 ml Discontinued Medications Heparin Sodium (Porcine) (Heparin Sodium) Confirm Administered Dose 5,000 units .ROUTE .STK-MED ONE Stop: 09/03/17 08:48 Last Admin: 09/03/17 09:11 Dose: Not Given Ciprofloxacin/Dextrose 400 mg/ (Premix) 200 mls @ 200 mls/hr IV Q12H [facility] Last Admin: 09/02/17 09:03 Dose: 200 mls/hr Metronidazole (Flagyl 500 Mg In Ns 100 Ml) Confirm Administered Dose 100 mls @ as directed .ROUTE .STK-MED ONE Stop: 09/01/17 11:15 Last Admin: 09/01/17 11:26 Dose: Not Given Potassium Chloride/Dextrose/Sod Cl (D5 Ns With 20 Meq Kcl) 1,000 mls @ 150 mls/ hr IV ASDIRECTED [facility] Last Admin: 09/02/17 19:59 Dose: 150 mls/hr Sodium Chloride (Normal Saline) 500 mls @ 999 mls/hr IV .BOLUS ONE Stop: 09/02/17 04:00 Last Admin: 09/02/17 03:34 Dose: 999 mls/hr Ampicillin Sodium/Sulbactam (Sodium 1.5 gm/ Sodium Chloride) 50 mls @ 100 mls/ hr IV Q6HR [facility] Last Admin: 09/03/17 05:41 Dose: Not Given Ampicillin Sodium/Sulbactam (Sodium 3 gm/ Sodium Chloride) 50 mls @ 100 mls/hr IV ASDIRECTED [facility] Stop: 09/02/17 18:00 Last Admin: 09/02/17 14:17 Dose: 100 mls/hr Potassium Chloride/Dextrose/Sod Cl (D5 1/2 Ns W/ 20 Meq/L Kcl) Confirm Administered Dose 1,000 mls @ as directed .ROUTE .STK-MED ONE Stop: 09/03/17 08:08 Last Admin: 09/03/17 09:12 Dose: Not Given Potassium Chloride/Dextrose/Sod Cl (D5 Ns With 40 Meq Kcl) 1,000 mls @ 150 mls/ hr IV ASDIRECTED [facility] Last Admin: 09/03/17 17:49 Dose: 150 mls/hr Metronidazole (Flagyl 500 Mg In Ns 100 Ml) Confirm Administered Dose 100 mls @ as directed .ROUTE .STK-MED ONE Stop: 09/03/17 17:59 Last Admin: 09/03/17 18:54 Dose: Not Given Potassium Chloride/Dextrose/Sod Cl (D5 1/2 Ns W/ 40 Meq/L Kcl) Confirm Administered Dose 1,000 mls @ as directed .ROUTE .STK-MED ONE Stop: 09/03/17 22:59 Last Admin: 09/03/17 23:00 Dose: 1,000 ml Ketorolac Tromethamine (Toradol) Confirm Administered Dose 30 mg .ROUTE .STK- MED ONE Stop: 09/01/17 14:42 Last Admin: 09/01/17 14:45 Dose: 30 mg Nicotine (Habitrol) Confirm Administered Dose 14 mg .ROUTE .STK-MED ONE Stop: 09/01/17 13:22 Last Admin: 09/01/17 14:49 Dose: Not Given Sodium Chloride (Normal Saline) 50 ml FLUSH ONETIME ONE Stop: 09/04/17 09:06 Last Admin: 09/04/17 10:31 Dose: Not Given - Exam General: Reports: Alert, Oriented HEENT: Reports: Pupils Equal, Pupils Reactive, EOMI, Mucous Membr. Moist/[place] Neck: Reports: Supple Lungs: Reports: Clear to Auscultation, Normal Respiratory Effort Cardiovascular: Reports: Regular Rate, Regular Rhythm GI/Abdominal Exam: Tender (Mid and left lower quadrant.) Back Exam: Reports: Normal Inspection, Full Range of Motion Extremities: Normal Inspection, Normal Range of Motion, Non-Tender, No Pedal Edema, Normal Capillary Refill Skin: Reports: Rash (Right lower leg that is erythematous.) Wound/Incisions: Reports: Erythema Neurological: Reports: No New Focal Deficit Psy/Mental Status: Reports: Alert, Normal Affect, Normal Mood *Q Meaningful Use (DIS) - VTE *Q VTE Criteria *Q: - Stroke *Q Stroke Criteria *Q: - AMI *Q AMI Criteria *Q:
--- NOTE | 2017-09-06 08:50 | CT ---
DATE OF SERVICE: 09/04/17 CLINICAL DATA: abd pain, diarrhea, increased WBC ENHANCED ABDOMEN AND PELVIC CT: Multislice acquisition through the abdomen and pelvis with IV and oral contrast was performed. Comparison is made to prior abdomen and pelvic CTs dated . There are small bilateral pleural effusions, right greater than left. These were not present on the prior exam. There is persistent pleural thickening in the left hemithorax posteromedially. There are atelectatic changes in both lower lungs with small areas of consolidation bilaterally. Pneumonia should be considered. There is persistent severe diverticulosis of the sigmoid colon. There is persistent mild pericolonic fat stranding adjacent to the proximal and mid sigmoid colon with persistent mural thickening within this segment. Again, acute mild diverticulitis is suspected. Colitis should also be considered. Again, colonoscopy after treatment is recommended to exclude an infiltrating process. The bladder is partially fluid-filled. The bladder wall does appear thickened. This is probably related to nondistension. Cystitis should be considered. No other significant interval changes from the prior study. [id number] [facility]
== END 2017-09-04 13:30 | DRG 720 ==
LOC: LB.CLINIC 09:38 → LB.MS 10:10 → UNDOADMIN 10:10 → LB.MS 10:23
PROVIDERS: ADMIT Family Medicine; ATTEND Family Medicine
DX: A40.3 Sepsis due to Streptococcus pneumoniae (principal); K57.32 Diverticulitis of large intestine without perforation or abscess without bleeding; R65.20 Severe sepsis without septic shock; C85.90 Non-Hodgkin lymphoma, unspecified, unspecified site; E87.1 Hypo-osmolality and hyponatremia; E87.6 Hypokalemia; E88.09 Other disorders of plasma-protein metabolism, not elsewhere classified; S82.831A Other fracture of upper and lower end of right fibula, initial encounter for closed fracture; X50.1XXA Overexertion from prolonged static or awkward postures, initial encounter; L03.115 Cellulitis of right lower limb
CPT/HCPCS: 36415; 73600-RT; 73610-RT; 74176; 74177; 80053; 83605; 85025; 85651; 87040; 87077; 87186; 87493; A9270-GY; J0287; J0295; J0744; J1170; J1644; J1885; J2405; J3480; J7040; J7050

== ENCOUNTER 2017-10-21 07:30 | Day surgery (SDC) | payer BC ==
[~2017-10-21 07:30] MED LIST: Metoclopramide 10 MG/2 ML SDV IV PRN; Sodium Chloride 0.9% 1,000 ML IV SCH; Sodium Chloride 0.9% 10 ML Syringe FLUSH PRN
[2017-10-21] MEDS: Sodium Chloride 0.9% 1,000 ML IV SCH (08:05)
[2017-10-21] MEDS ORDERED: Propofol 500 MG/50 ML SDV ONE (09:15)
--- NOTE | 2017-10-21 10:23 | OR ---
DATE OF OPERATION: 10/21/2017 PREOPERATIVE DIAGNOSIS: Screening colonoscopy. POSTOPERATIVE DIAGNOSIS: Screening colonoscopy. PROCEDURE: Incomplete colonoscopy to the sigmoid. ESTIMATED BLOOD LOSS: None. COMPLICATIONS: None. INDICATION FOR THE PROCEDURE: The patient is a 62-year-old male, who had a recent bout of presumed diverticulitis approximately 6 to 7 weeks ago. The patient has had previous screening colonoscopy, which was unremarkable. The patient is here today for a colonoscopy. DESCRIPTION OF PROCEDURE: Informed consent was obtained from the patient. The patient was taken to the operating room, placed on table in left lateral decubitus position. Monitored anesthesia care was administered. Digital rectal exam performed was normal. Colonoscope was then advanced through the anus and was able to reach the sigmoid colon. The patient did have severe diverticulosis and tortuous sigmoid colon. No signs of inflammation. No signs of colitis or diverticulitis. No polyps were seen in the rectum or sigmoid. Unable to negotiate the scope through the sigmoid due to tortuosity as well as diverticula. Colonoscope was then withdrawn. The patient tolerated procedure well and was brought to recovery room in good condition. FINDINGS: Severe diverticulosis and tortuous sigmoid colon. RECOMMENDATIONS: We will set up patient for CT colonography at a future date to further assess the colon due to incomplete colonoscopy due to tortuous colon. ANISA/MARY JANE /[id number]
== END 2017-10-21 10:45 | disposition home or self-care (01) ==
LOC: LB.SDS 07:30
PROVIDERS: ATTEND Surgery
DX: Z12.11 Encounter for screening for malignant neoplasm of colon (principal); K57.30 Diverticulosis of large intestine without perforation or abscess without bleeding; K56.2 Volvulus
CPT/HCPCS: J2704; J7040

== ENCOUNTER 2019-05-13 16:07 | Emergency (ER) | payer BC ==
--- NOTE | 2019-05-13 16:55 | EDM.PDOC ---
ED HPI GENERAL MEDICAL PROBLEM - General Chief Complaint: General Stated Complaint: CELLULITIS Time Seen by Provider: 05/13/19 16:30 Source of Information: Reports: Patient History Limitations: Reports: No Limitations - History of Present Illness INITIAL COMMENTS - FREE TEXT/NARRATIVE: Pt is a 63 year old male with Maltoma-B cell non-Hodgkin lymphoma and has been under care of Dr. Ro Champion, oncologist at [facility].. Presents to the emergency room with c/o hand swelling and pain which has got worse today. Apparently patient noticed a small white pimple over the left middle finger 3 days ago, which over the past 2 days has formed a red spreading lesion over the finger. Today morning he started noticing redness and pain over the dorsum of the hand and over the day the redness and swelling has spread to lower forearm and also he cannot flex his fingers completely or make a fist. Also he has noticed a swelling over the posterior aspect of the left elbow over the past 3-4 days. No fever or chills. But has been feeling weak and sick for past few days now. No abdominal pain or diarrhea. No dysuria. No urinary frequency. Onset: Gradual Onset Date: 05/10/19 Duration: Constant, Getting Worse Location: Reports: Upper Extremity, Left Quality: Reports: Ache Severity: Moderate Improves with: Reports: None Worsens with: Reports: None Associated Symptoms: Reports: Weakness. Denies: Confusion, Chest Pain, Cough, Diaphoresis, Fever/Chills, Headaches, Nausea/Vomiting, Rash, Seizure, Shortness of Breath - Related Data Allergies Allergy/AdvReac Type Severity Reaction Status Date / Time No Known Allergies Allergy Verified 10/13/18 11:44 Home Meds: Home Meds Multivitamin [Multi-Day Vitamins] 1 each PO DAILY 09/01/17 [History] Aspirin [Halfprin] 81 mg PO DAILY 05/13/19 [History] Lactobacillus Acidophilus [Probiotic] 1 each PO DAILY 05/13/19 [History] Lenalidomide [Revlimid] 20 mg PO DAILY 05/13/19 [History] Zinc Gluconate [Zinc] 30 mg PO DAILY 05/13/19 [History] Past Medical History HEENT History: Reports: Impaired Vision Gastrointestinal History: Reports: Colon Polyp, Diverticulosis, Other (See Below ) Other Gastrointestinal History: Severe diverticulitis Musculoskeletal History: Reports: Fracture Other Musculoskeletal History: right ankle Fracture Immunologic History: Reports: Immunosuppression Oncologic (Cancer) History: Reports: Non-Hodgkin's Lymphoma - Past Surgical History GI Surgical History: Reports: Polypectomy Oncologic Surgical History: Reports: Bone Marrow Aspiration Social & Family History - Family History Family Medical History: Noncontributory Endocrine/Metabolic: Reports: Diabetes, type II Oncologic: Reports: Colon, Liver, Non-Hodgkin's Lymphoma - Tobacco Use Smoking Status *Q: Current Every Day Smoker Years of Tobacco use: 45 Packs/Tins Daily: 1 - Caffeine Use Caffeine Use: Reports: Coffee Other Caffeine Use: half cup - Alcohol Use Days Per Week of Alcohol Use: 7 Number of Drinks Per Day: 4 Total Drinks Per Week: 28 - Recreational Drug Use Recreational Drug Use: Yes Recreational Drug Type: Reports: Marijuana/Hashish Recreational Drug Use Frequency: Daily ED ROS GENERAL - Review of Systems Review Of Systems: See Below Constitutional: Reports: Weakness. Denies: Fever, Chills HEENT: Denies: Ear Pain, Rhinitis, Throat Pain Respiratory: Denies: Shortness of Breath, Wheezing, Pleuritic Chest Pain, Cough , Sputum Cardiovascular: Denies: Chest Pain, Lightheadedness GI/Abdominal: Denies: Abdominal Pain, Constipation, Diarrhea, Nausea, Vomiting : Denies: Dysuria, Frequency Musculoskeletal: Reports: Hand Pain. Denies: Joint Pain, Joint Swelling Skin: Reports: Wound. Denies: Bruising, Pruritis, Rash ED EXAM, GENERAL - Physical Exam Exam: See Below Exam Limited By: No Limitations General Appearance: Alert, WD/WN, No Apparent Distress Eye Exam: Bilateral Eye: EOMI, PERRL Ears: Normal External Exam, Normal Canal, Hearing Grossly Normal, Normal TMs Ear Exam: Bilateral Ear: Auricle Normal, Canal Normal, TM normal Nose: Normal Inspection, Normal Mucosa, No Blood Throat/Mouth: Normal Inspection, Normal Lips, Normal Teeth, Normal Gums, Normal Oropharynx, Normal Voice, No Airway Compromise Head: Atraumatic, Normocephalic Neck: Normal Inspection, Supple, Non-Tender, Full Range of Motion Respiratory/Chest: No Respiratory Distress, Lungs Clear, Normal Breath Sounds, No Accessory Muscle Use, Chest Non-Tender Cardiovascular: Normal Peripheral Pulses, Regular Rate, Rhythm, No Edema, No Gallop, No JVD, No Murmur, No Rub GI/Abdominal: Normal Bowel Sounds, Soft, Non-Tender, No Organomegaly, No Distention, No Abnormal Bruit, No Mass Extremities: No Pedal Edema, Normal Capillary Refill, Other (Left upper extremity: There is a 2 by 3 cm rectangular purplish red wound over the proximal pahlynx of the dorsum of the middle finger. the finger is swollen red and tense. There is erytehma spreading intot he dorsum of the hand and the lwoer 1/3 of the doersal forearm. The area is very painful and warm to touch. Also Patient has painful limited flexion of the small joints of the fingers, cannot make hand associate account executive.) Neurological: Alert, Oriented, CN II-XII Intact, Normal Cognition, Normal Gait, Normal Reflexes, No Motor/Sensory Deficits Skin Exam: Warm Course - Vital Signs Text/Narrative:: 63 year old male, presents to emergency room with quickly progressive skin infection over the left hand and forearm following a small area of infection over the left middle finger. Also he has left olecranon bursitis. His Vitals have been stable. As the area of cellulitis is very warm and tender. he did receive Rocephin after the blood draw. Patient CBC shows white count of 1.1 with 20% neutrophils. Apparently patient has a gradual drop in his white count from January 2019 from 4.9 to 1.1 today. His previous white count on 04/25/19 was 2.2. Patient is leukopenic at this point.Which is why he has been having such a quickly progressive skin infection. He does have limited flexion of the small joints of the left hand concerning for early infective tenosynovitis. I did discuss this with patient. Also had 2 set of blood cultures , Lactic acid level and CMP done. Also Vancomycin 1gm IV was given. Pt's CMP is stable, his lactic acid is 1.95. I did contact Patient's oncologist Dr. Ro Champion, who was lead generation specialist today. HE does agree with transfer to [facility] for further care. i have discussed patient with Dr. Yanes the hospitalist lead generation specialist. I have discussed the plan with patient and his daughter( who is RN at [facility]). Pt refuses transfer by Ambulance.He did go home to [facility] up few beongings and came back for Iv levaquin. His spouse who is RN at the hospital and Nurse business liaison manager at [facility], agrees to take him by Private vehicle. Also patient advised to wear mask for leukopenic precautions during transfer further care per Dr. Champion/ Joaquín.Pt is hemodynamically stable at the time of transfer Last Recorded V/S: Last Vital Signs Temp 99.1 F 05/13/19 17:39 Pulse 88 05/13/19 17:39 Resp 18 05/13/19 17:39 BP 133/68 05/13/19 17:39 Pulse Ox 99 05/13/19 17:39 - Orders/Labs/Meds Orders: Active Orders 24 hr Category Date Time Status CULTURE BLOOD [BC] Routine Lab 05/13/19 17:25 Received CULTURE BLOOD [BC] Stat Lab 05/13/19 17:10 Received Vancomycin 1 gm Med 05/13/19 18:28 Active Sodium Chloride 0.9% [Normal Saline] 250 ml IV ONETIME Medication Orders Vancomycin HCl 1 gm/ Sodium (Chloride) 250 mls @ 167 mls/hr IV ONETIME ONE Stop: 05/13/19 19:57 Labs: Laboratory Tests 05/13/19 05/13/19 05/13/19 Range/Units 16:40 16:40 16:40 WBC 1.1 L* D (4.0-11.0) K/uL RBC 2.95 L (4.50-6.50) M/uL Hgb 10.4 L (13.0-18.0) g/dL Hct 30.1 L (40.0-54.0) % MCV 102 H (76-96) fL MCH 35.3 H (27.0-32.0) pg MCHC 34.6 (31.0-35.0) g/dL RDW 14.1 (11.0-16.0) % Plt Count 60 L (150-400) K/uL MPV 10.1 H (6.0-10.0) fL Neut % (Auto) 20.8 L (45.0-70.0) % Lymph % (Auto) 54.7 H (20.0-40.0) % Crawford % (Auto) 11.3 H (3.0-10.0) % Eos % (Auto) 12.3 H (1.0-5.0) % Baso % (Auto) 0.9 H (0.0-0.5) % Neut # (Auto) 0.22 L (2.00-7.50) K/uL Lymph # (Auto) 0.58 L (1.50-4.00) K/uL Crawford # (Auto) 0.12 L (0.20-0.80) K/uL Eos # (Auto) 0.13 (0.04-0.40) K/uL Baso # (Auto) 0.01 L (0.02-0.10) K/uL Sodium 140 (136-145) mmol/L Potassium 3.4 L D (3.5-5.1) mmol/L Chloride 104 (98-107) mmol/L Carbon Dioxide 22.8 (21.0-32.0) mmol/L Anion Gap 16.6 H (5.0-15.0) mmol/L BUN 19 (8-26) mg/dL Creatinine 0.91 (0.70-1.30) mg/dL Est Cr Clr Drug Dosing 79.96 mL/min Estimated GFR (MDRD) > 60 (>60) MLS/MIN BUN/Creatinine Ratio 20.9 (6-25) Glucose 108 H (74-100) mg/dL Lactic Acid 1.95 H (0.90-1.70) mmol/L Calcium 8.5 (8.5-10.1) mg/dL Total Bilirubin 0.4 D (0.0-1.0) mg/dL AST 16 (15-37) U/L ALT 21 (12-78) U/L Alkaline Phosphatase 98 (46-116) U/L Total Protein 7.5 (6.4-8.2) g/dL Albumin 3.4 (3.4-5.0) g/dL Globulin 4.1 (2.2-4.2) g/dL Albumin/Globulin Ratio 0.8 (0.8-2.0) Meds: Medications Generic Name Dose Route Start Last Admin Trade Name Freq PRN Reason Stop Dose Admin Vancomycin HCl 1 gm/ Sodium 250 mls @ 167 mls/hr 05/13/19 18:28 Chloride IV 05/13/19 19:57 ONETIME ONE Discontinued Medications Generic Name Dose Route Start Last Admin Trade Name Freq PRN Reason Stop Dose Admin Ceftriaxone Sodium 1 gm 05/13/19 16:50 05/13/19 16:57 Rocephin IM 05/13/19 16:51 1 gm ONETIME ONE Administration Departure - Departure Time of Disposition: 18:00 Disposition: DC/Tfer to Acute Hospital 02 Condition: Fair Clinical Impression: Cellulitis of hand, Leucopenia, Other infective (teno)synovitis, left hand - Discharge Information *PRESCRIPTION DRUG MONITORING PROGRAM REVIEWED*: Not Applicable *COPY OF PRESCRIPTION DRUG MONITORING REPORT IN PATIENT ALICIA: Not Applicable Instructions: Cellulitis, Adult, Tenosynovitis Referrals: PCP,None [Primary Care Provider] - Forms: ED Department Discharge - Problem List & Annotations (1) Cellulitis of hand SNOMED Code(s): 83796976 Code(s): L03.119 - CELLULITIS OF UNSPECIFIED PART OF LIMB Status: Acute Current Visit: No (2) Leucopenia SNOMED Code(s): 43080067, 589633870 Code(s): D72.819 - DECREASED WHITE BLOOD CELL COUNT, UNSPECIFIED Status: Acute Current Visit: No (3) Other infective (teno)synovitis, left hand SNOMED Code(s): 577704617, 223386321 Code(s): M65.142 - OTHER INFECTIVE (TENO)SYNOVITIS, LEFT HAND Status: Acute Current Visit: No - Problem List Review Problem List Initiated/Reviewed/Updated: Yes - My Orders Last 24 Hours: My Active Orders 05/13/19 17:10 CULTURE BLOOD [BC] Stat 05/13/19 17:25 CULTURE BLOOD [BC] Routine 05/13/19 18:28 Vancomycin 1 gm Sodium Chloride 0.9% [Normal Saline] 250 ml IV ONETIME - Assessment/Plan Last 24 Hours: My Active Orders 05/13/19 17:10 CULTURE BLOOD [BC] Stat 05/13/19 17:25 CULTURE BLOOD [BC] Routine 05/13/19 18:28 Vancomycin 1 gm Sodium Chloride 0.9% [Normal Saline] 250 ml IV ONETIME Assessment:: Leucopenia Left hand cellulitis with early tenosynovitis Plan: 63 year old male, presents to emergency room with quickly progressive skin infection over the left hand and forearm following a small area of infection over the left middle finger. Also he has left olecranon bursitis. His Vitals have been stable. As the area of cellulitis is very warm and tender. he did receive Rocephin after the blood draw. Patient CBC shows white count of 1.1 with 20% neutrophils. Apparently patient has a gradual drop in his white count from January 2019 from 4.9 to 1.1 today. His previous white count on 04/25/19 was 2.2. Patient is leukopenic at this point.Which is why he has been having such a quickly progressive skin infection. He does have limited flexion of the small joints of the left hand concerning for early infective tenosynovitis. I did discuss this with patient. Also had 2 set of blood cultures , Lactic acid level and CMP done. Also Vancomycin 1gm IV was given. Pt's CMP is stable, his lactic acid is 1.95. I did contact Patient's oncologist Dr. Ro Champion, who was lead generation specialist today. HE does agree with transfer to [facility] for further care. i have discussed patient with Dr. Yanes the hospitalist lead generation specialist. I have discussed the plan with patient and his daughter( who is RN at [facility]). Pt refuses transfer by Ambulance.He did go home to [facility] up few beongings and came back for Iv levaquin. His spouse who is RN at the hospital and Nurse business liaison manager at [facility], agrees to take him by Private vehicle. Also patient advised to wear mask for leukopenic precautions during transfer further care per Dr. Champion/ Joaquín.Pt is hemodynamically stable at the time of transfer
[2019-05-13] MEDS: cefTRIAXone 1 GM Vial IM ONE (16:57)
== END 2019-05-13 20:35 ==
LOC: LB.ED 16:07
DX: L03.114 Cellulitis of left upper limb (principal); M65.842 Other synovitis and tenosynovitis, left hand; D72.819 Decreased white blood cell count, unspecified; C85.10 Unspecified B-cell lymphoma, unspecified site; F17.210 Nicotine dependence, cigarettes, uncomplicated; Z79.82 Long term (current) use of aspirin; Z79.899 Other long term (current) drug therapy
CPT/HCPCS: 36415; 80053; 83605; 85025; 87040; 96365; 96366; 96372; 99284; J0696; J3370; J7050

== ENCOUNTER 2021-03-08 16:59 | Inpatient (IN) | payer MEDICARE, OTHER ==
[2021-03-08] MEDS ORDERED: Sodium Chloride 0.9% 1,000 ML IV ONE ×2 (17:31→19:08)
[2021-03-08] MEDS ORDERED: Sodium Chloride 0.9% 10 ML Syringe FLUSH PRN (17:31)
--- NOTE | 2021-03-08 17:33 | EDM.PDOC ---
ED HPI GENERAL MEDICAL PROBLEM - General Chief Complaint: Gastrointestinal Problem Stated Complaint: Diarrhea x3 days Time Seen by Provider: 03/08/21 17:15 Source of Information: Reports: Patient History Limitations: Reports: No Limitations - History of Present Illness INITIAL COMMENTS - FREE TEXT/NARRATIVE: patient with a non-Hodgkin lymphoma on chemotherapy - who presented to the ER with a c/o loose stool and cough for 2-3 days. Reports he has been doing well until 3 days ago when he had a family gathering - one of the family members was diagnosed with a C.Diff, and some kids were coughing and showing symptoms of URTI. The following day, he started to have body aches, loss of appetite, and loose stool > 15x/day - watery diarrhea. No fever but chills. Also reports dry irritating cough. non productive. No CP. Reports he didn't get enough food and fluids for the last 2-3 days. patient last chemo was last week. He received his 2 Covid shots. No SOB, no dizziness or headache. Onset: Sudden Duration: Day(s): Location: Reports: Abdomen Quality: Reports: Ache Severity: Severe - Related Data Allergies Allergy/AdvReac Type Severity Reaction Status Date / Time No Known Allergies Allergy Verified 05/25/19 10:58 Home Meds: Home Meds Lenalidomide [Revlimid] 20 mg PO DAILY 05/13/19 [History] Past Medical History HEENT History: Reports: Impaired Vision Gastrointestinal History: Reports: Colon Polyp, Diverticulosis, Other (See Below) Other Gastrointestinal History: Severe diverticulitis Musculoskeletal History: Reports: Fracture Other Musculoskeletal History: right ankle Fracture Immunologic History: Reports: Immunosuppression Oncologic (Cancer) History: Reports: Non-Hodgkin's Lymphoma - Past Surgical History GI Surgical History: Reports: Polypectomy Oncologic Surgical History: Reports: Bone Marrow Aspiration Social & Family History - Family History Family Medical History: No Pertinent Family History Endocrine/Metabolic: Reports: Diabetes, type II Oncologic: Reports: Colon, Liver, Non-Hodgkin's Lymphoma - Caffeine Use Caffeine Use: Reports: Coffee Other Caffeine Use: half cup ED ROS GENERAL - Review of Systems Review Of Systems: See Below Constitutional: Reports: Chills, Malaise, Fatigue, Decreased Appetite, Weight Loss HEENT: Reports: No Symptoms Respiratory: Reports: Cough Cardiovascular: Reports: No Symptoms GI/Abdominal: Reports: Anorexia, Diarrhea, Decreased Appetite, Nausea, Stool Incontinence : Reports: No Symptoms Musculoskeletal: Reports: Muscle Pain Skin: Reports: No Symptoms Neurological: Reports: No Symptoms Psychiatric: Reports: No Symptoms ED EXAM, GI/ABD - Physical Exam Exam: See Below Exam Limited By: No Limitations General Appearance: Alert, WD/WN, Lethargic, Mild Distress Eyes: Bilateral: EOMI Head: Atraumatic, Normocephalic Respiratory/Chest: No Respiratory Distress, Lungs Clear, No Accessory Muscle Use Cardiovascular: Normal Peripheral Pulses, Regular Rate, Rhythm GI/Abdominal Exam: Soft, Non-Tender, Distended, Abnormal Bowel Sounds Extremities: Normal Inspection, Normal Range of Motion Neurological: Alert, Oriented, Normal Cognition, No Motor/Sensory Deficits Skin Exam: Dry Course - Vital Signs Last Recorded V/S: Last Vital Signs Temp 37.4 C 03/08/21 19:39 Pulse 95 03/08/21 19:39 Resp 20 03/08/21 19:39 BP 142/73 H 03/08/21 19:39 Pulse Ox 94 L 03/08/21 19:39 - Orders/Labs/Meds Orders: Active Orders 24 hr Category Date Time Status Admission Diagnosis [ADT] Stat ADT 03/08/21 20:01 Ordered Admission Status [Patient Status] [ADT] Routine ADT 03/08/21 20:02 Ordered Abdomen Pelvis w Cont [CT] Stat Exams 03/08/21 17:47 Taken CXR [Chest 1V Frontal] [CR] Stat Exams 03/08/21 17:47 Taken CULTURE BLOOD [BC] Stat Lab 03/08/21 17:31 Received Iopamidol [Isovue-300 (61%)] Med 03/08/21 18:15 Active 100 ml IV . DIRECTED Sodium Chloride 0.9% [Normal Saline] 1,000 ml Med 03/08/21 19:08 Active IV .BOLUS Sodium Chloride 0.9% [Saline Flush] Med 03/08/21 17:31 Active 10 ml FLUSH ASDIRECTED PRN Isolation [COMM] Stat Oth 03/08/21 17:31 Active Saline Lock Insert [OM.PC] Routine Oth 03/08/21 17:31 Ordered Medication Orders Sodium Chloride (Normal Saline) 1,000 mls @ 999 mls/hr IV .BOLUS ONE Stop: 03/08/21 20:08 Last Admin: 03/08/21 19:33 Dose: 999 mls/hr Documented by: BARBARA Iopamidol (Iopamidol 612 Mg/Ml 100 Ml Bottle) 100 ml IV . DIRECTED YVONNE Last Admin: 03/08/21 18:21 Dose: 100 ml Documented by: MINDY Sodium Chloride (Sodium Chloride 0.9% 10 Ml Syringe) 10 ml FLUSH ASDIRECTED PRN PRN Reason: Keep Vein Open Labs: Laboratory Tests 03/08/21 03/08/21 03/08/21 Range/Units 17:30 17:31 17:31 WBC 16.3 H D (4.0-11.0) K/uL RBC 3.36 L (4.50-6.50) M/uL Hgb 11.8 L (13.0-18.0) g/dL Hct 32.9 L (40.0-54.0) % MCV 98 H (76-96) fL MCH 35.1 H (27.0-32.0) pg MCHC 35.9 H (31.0-35.0) g/dL RDW 15.7 (11.0-16.0) % Plt Count 117 L D (150-400) K/uL MPV 9.5 (6.0-10.0) fL Neut % (Auto) 95.0 H (45.0-70.0) % Lymph % (Auto) 1.7 L (20.0-40.0) % [place] % (Auto) 3.0 (3.0-10.0) % Eos % (Auto) 0.2 L (1.0-5.0) % Baso % (Auto) 0.1 (0.0-0.5) % Neut # (Auto) 15.44 H (2.00-7.50) K/uL Lymph # (Auto) 0.28 L (1.50-4.00) K/uL [place] # (Auto) 0.48 (0.20-0.80) K/uL Eos # (Auto) 0.04 (0.04-0.40) K/uL Baso # (Auto) 0.01 L (0.02-0.10) K/uL Sodium 129 L (136-145) mmol/L Potassium 3.5 D (3.5-5.1) mmol/L Chloride 97 L (98-107) mmol/L Carbon Dioxide 16.0 L D (21.0-32.0) mmol/L Anion Gap 19.5 H (5.0-15.0) mmol/L BUN 10 D (8-26) mg/dL Creatinine 0.95 (0.70-1.30) mg/dL Est Cr Clr Drug Dosing TNP Estimated GFR (MDRD) > 60 (>60) MLS/MIN BUN/Creatinine Ratio 10.5 (6-25) Glucose 168 H D (74-100) mg/dL Lactic Acid 1.2 (0.4-2.0) mmol/L Calcium 8.6 (8.5-10.1) mg/dL Total Bilirubin 1.0 D (0.0-1.0) mg/dL AST 27 (15-37) U/L ALT 36 (12-78) U/L Alkaline Phosphatase 176 H (46-116) U/L Total Protein 7.8 (6.4-8.2) g/dL Albumin 3.3 L (3.4-5.0) g/dL Globulin 4.5 H (2.2-4.2) g/dL Albumin/Globulin Ratio 0.7 L (0.8-2.0) Urine Color Urine Appearance (CLEAR) Urine pH (5.0-8.0) Ur Specific [place] (1.003-1.030) Urine Protein (NEGATIVE) mg/dL Urine Glucose (UA) (NEGATIVE) mg/dL Urine Ketones (NEGATIVE) mg/dL Urine Occult Blood (NEGATIVE) Urine Nitrite (NEGATIVE) Urine Bilirubin (NEGATIVE) Urine Urobilinogen (0.2-1.0) E.U./dL Ur Leukocyte Esterase (NEGATIVE) Urine RBC /HPF Urine WBC /HPF Ur Squamous Epith Cells /HPF SARS CoV-2 RNA Rapid AMADO 03/08/21 03/08/21 Range/Units 17:32 18:48 WBC (4.0-11.0) K/uL RBC (4.50-6.50) M/uL Hgb (13.0-18.0) g/dL Hct (40.0-54.0) % MCV (76-96) fL MCH (27.0-32.0) pg MCHC (31.0-35.0) g/dL RDW (11.0-16.0) % Plt Count (150-400) K/uL MPV (6.0-10.0) fL Neut % (Auto) (45.0-70.0) % Lymph % (Auto) (20.0-40.0) % [place] % (Auto) (3.0-10.0) % Eos % (Auto) (1.0-5.0) % Baso % (Auto) (0.0-0.5) % Neut # (Auto) (2.00-7.50) K/uL Lymph # (Auto) (1.50-4.00) K/uL [place] # (Auto) (0.20-0.80) K/uL Eos # (Auto) (0.04-0.40) K/uL Baso # (Auto) (0.02-0.10) K/uL Sodium (136-145) mmol/L Potassium (3.5-5.1) mmol/L Chloride (98-107) mmol/L Carbon Dioxide (21.0-32.0) mmol/L Anion Gap (5.0-15.0) mmol/L BUN (8-26) mg/dL Creatinine (0.70-1.30) mg/dL Est Cr Clr Drug Dosing Estimated GFR (MDRD) (>60) MLS/MIN BUN/Creatinine Ratio (6-25) Glucose (74-100) mg/dL Lactic Acid (0.4-2.0) mmol/L Calcium (8.5-10.1) mg/dL Total Bilirubin (0.0-1.0) mg/dL AST (15-37) U/L ALT (12-78) U/L Alkaline Phosphatase (46-116) U/L Total Protein (6.4-8.2) g/dL Albumin (3.4-5.0) g/dL Globulin (2.2-4.2) g/dL Albumin/Globulin Ratio (0.8-2.0) Urine Color Yellow Urine Appearance Clear (CLEAR) Urine pH 6.5 (5.0-8.0) Ur Specific [place] >= 1.030 (1.003-1.030) Urine Protein >=300 H (NEGATIVE) mg/dL Urine Glucose (UA) Negative (NEGATIVE) mg/dL Urine Ketones Trace H (NEGATIVE) mg/dL Urine Occult Blood Trace-lysed H (NEGATIVE) Urine Nitrite Negative (NEGATIVE) Urine Bilirubin Negative (NEGATIVE) Urine Urobilinogen 0.2 (0.2-1.0) E.U./dL Ur Leukocyte Esterase Negative (NEGATIVE) Urine RBC 0-5 H /HPF Urine WBC 0-5 H /HPF Ur Squamous Epith Cells Few /HPF SARS CoV-2 RNA Rapid AMADO Negative Meds: Medications Generic Name Dose Route Start Last Admin Trade Name Jahaira PRN Reason Stop Dose Admin Sodium Chloride 1,000 mls @ 999 mls/hr 03/08/21 19:08 03/08/21 19:33 Normal Saline IV 03/08/21 20:08 999 mls/hr .BOLUS ONE Administration Iopamidol 100 ml 03/08/21 18:15 03/08/21 18:21 Iopamidol 612 Mg/Ml 100 Ml Bottle IV 100 ml . DIRECTED YVONNE Administration Sodium Chloride 10 ml 03/08/21 17:31 Sodium Chloride 0.9% 10 Ml Syringe FLUSH ASDIRECTED PRN Keep Vein Open Discontinued Medications Generic Name Dose Route Start Last Admin Trade Name Jahaira PRN Reason Stop Dose Admin Sodium Chloride 1,000 mls @ 999 mls/hr 03/08/21 17:31 03/08/21 18:28 Normal Saline IV 03/08/21 18:31 999 mls/hr .BOLUS ONE Administration Metronidazole 500 mg/ Premix 100 mls @ 100 mls/hr 03/08/21 18:51 03/08/21 19:29 IV 03/08/21 19:50 100 mls/hr ONETIME ONE Administration Ciprofloxacin/Dextrose 400 mg/ 200 mls @ 200 mls/hr 03/08/21 18:51 03/08/21 19:17 Premix IV 03/08/21 19:50 200 mls/hr ONETIME ONE Administration Ceftriaxone Sodium 1 gm/ 50 mls @ 100 mls/hr 03/08/21 19:11 Sodium Chloride IV 03/08/21 19:40 ONETIME ONE Ciprofloxacin/Dextrose Confirm 03/08/21 19:13 03/08/21 19:21 Cipro In D5w 400 Mg/200 Ml Administered 03/08/21 19:14 Not Given Dose 200 mls @ as directed .ROUTE .STK-MED ONE Metronidazole Confirm 03/08/21 19:27 03/08/21 19:30 Flagyl In Ns 500 Mg/100 Ml Administered 03/08/21 19:28 Not Given Dose 100 mls @ as directed .ROUTE .STK-MED ONE Sodium Chloride 50 ml 03/08/21 18:06 03/08/21 18:21 Sodium Chloride 0.9% 50 Ml Sdv FLUSH 03/08/21 18:07 50 ml ONETIME ONE Administration - Re-Assessments/Exams Free Text/Narrative Re-Assessment/Exam: vitals WNL labs were ordered - including CBC, CMP, UA, blood cx, C.Diff. CXR - no e/o infiltrates CT abd/pelv w IV - showed possible e/i enteritis, and some broncho-alveolar LNs c/w possible pneumonitis. IVF was started for hydration labs significant for leukocytosis, and low Na and Cl levels. due to concerns for GI infection as well as Pneumonia in a chemo patient - decision was to start broad spectrum abx - including IV Cipro + flagyl + Rocephin Given the PMHx and risk of sepsis - decision to admit the patient to the floor for hydration, monitoring and IV abx. Departure - Departure Time of Disposition: 20:05 Disposition: Admitted As Inpatient 66 Condition: Fair Clinical Impression: Gastroenteritis, Acute hyponatremia, Dehydration Pneumonia Qualifiers: Pneumonia type: due to unspecified organism Laterality: unspecified laterality Lung location: unspecified part of lung Qualified Code(s): J18.9 - Pneumonia, unspecified organism - Discharge Information *PRESCRIPTION DRUG MONITORING PROGRAM REVIEWED*: Not Applicable *COPY OF PRESCRIPTION DRUG MONITORING REPORT IN PATIENT ALICIA: Not Applicable Referrals: PCP,None [Primary Care Provider] - Forms: ED Department Discharge Sepsis Event Note (ED) - Focused Exam Vital Signs: Vital Signs Temp Pulse Resp BP Pulse Ox 03/08/21 19:39 37.4 C 95 20 142/73 H 94 L 03/08/21 19:35 37.4 C 95 20 142/73 H 94 L - Problem List & Annotations (1) Acute hyponatremia SNOMED Code(s): 1070922 Code(s): E87.1 - HYPO-OSMOLALITY AND HYPONATREMIA Status: Acute Priority: Low Current Visit: Yes (2) Gastroenteritis SNOMED Code(s): 93868650 Code(s): K52.9 - NONINFECTIVE GASTROENTERITIS AND COLITIS, UNSPECIFIED Status: Acute Priority: Medium Current Visit: Yes (3) Dehydration SNOMED Code(s): 01137522 Code(s): E86.0 - DEHYDRATION Status: Acute Priority: Low Current Visit: Yes (4) Pneumonia SNOMED Code(s): 345016379 Code(s): J18.9 - PNEUMONIA, UNSPECIFIED ORGANISM Status: Acute Priority: Low Current Visit: Yes Qualifiers: Pneumonia type: due to unspecified organism Laterality: unspecified laterality Lung location: unspecified part of lung Qualified Code(s): J18.9 - Pneumonia, unspecified organism - Problem List Review Problem List Initiated/Reviewed/Updated: Yes - My Orders Last 24 Hours: My Active Orders 03/08/21 17:31 CULTURE BLOOD [BC] Stat Sodium Chloride 0.9% [Saline Flush] 10 ml FLUSH ASDIRECTED PRN Isolation [COMM] Stat Saline Lock Insert [OM.PC] Routine 03/08/21 17:47 Abdomen Pelvis w Cont [CT] Stat CXR [Chest 1V Frontal] [CR] Stat 03/08/21 19:08 Sodium Chloride 0.9% [Normal Saline] 1,000 ml IV .BOLUS 03/08/21 20:01 Admission Diagnosis [ADT] Stat 03/08/21 20:02 Admission Status [Patient Status] [ADT] Routine - Assessment/Plan Last 24 Hours: My Active Orders 03/08/21 17:31 CULTURE BLOOD [BC] Stat Sodium Chloride 0.9% [Saline Flush] 10 ml FLUSH ASDIRECTED PRN Isolation [COMM] Stat Saline Lock Insert [OM.PC] Routine 03/08/21 17:47 Abdomen Pelvis w Cont [CT] Stat CXR [Chest 1V Frontal] [CR] Stat 03/08/21 19:08 Sodium Chloride 0.9% [Normal Saline] 1,000 ml IV .BOLUS 03/08/21 20:01 Admission Diagnosis [ADT] Stat 03/08/21 20:02 Admission Status [Patient Status] [ADT] Routine Plan: 1- gastroenteritis: 2/2 viral illness vs c.diff. IVF hydration, Zofran PRN. IV Cipro and IV Flagyl 2- acute hyponatremia: IVF for hydration 3- cough: possible 2/2 pneumonia. IV Rocephin 1gm q24 4- Dehydration: 2/2 GI loss and above. IVF and encourage PO intake 5- h/o non-Hodgkin lymphoma: on chemo therapy. no leukopenia. 6- resume rest of home meds as before anticipate 2-3 days in the hospital
[2021-03-08] MEDS ORDERED: Sodium Chloride 0.9% 50 ML SDV FLUSH ONE (18:06)
[2021-03-08] MEDS ORDERED: Iopamidol 612 MG/ML 100 ML Bottle IV SCH (18:15)
[2021-03-08] MEDS ORDERED: Ciprofloxacin in D5W 400 MG in Premix Bag 1 BAG IV ONE ×2 (18:51)
[2021-03-08] MEDS ORDERED: metroNIDAZOLE/Normal Saline 500 MG in Premix Bag 1 BAG IV ONE (18:51)
[2021-03-08] MEDS ORDERED: cefTRIAXone 1 GM in Sodium Chloride 0.9% 50 ML IV ONE ×2 (19:11→21:00)
[2021-03-08] MEDS ORDERED: Ciprofloxacin in D5W 200 ML ONE (19:13)
[2021-03-08] MEDS ORDERED: metroNIDAZOLE/Normal Saline 100 ML ONE (19:27)
[2021-03-08] MEDS ORDERED: Ondansetron 4 MG Tab.DIS PO PRN (20:39)
[2021-03-08] MEDS ORDERED: cefTRIAXone 1 GM Vial IVPUSH SCH (20:45)
[2021-03-08] MEDS ORDERED: Lactated Ringers 1,000 ML IV SCH ×2 (20:45)
[2021-03-08] MEDS: Sodium Chloride 0.9% 1,000 ML IV ONE (20:58)
[2021-03-08] MEDS: Acetaminophen/Codeine 300-30 MG Tab PO PRN (21:06)
[2021-03-08] MEDS ORDERED: Acetaminophen/Codeine 300-30 MG Tab ONE (21:07)
[2021-03-08] MEDS ORDERED: Acetaminophen/Codeine 300-30 MG Tab PO ONE (22:50)
[2021-03-08] MEDS: Benzonatate 100 MG Cap PO PRN (22:53)
[2021-03-09] MEDS: Ciprofloxacin in D5W 400 MG in Premix Bag 1 BAG IV SCH ×4 (02:55→11:50)
[2021-03-09] MEDS ORDERED: Ciprofloxacin in D5W 200 ML ONE ×2 (02:55→10:33)
[2021-03-09] MEDS ORDERED: metroNIDAZOLE/Normal Saline 100 ML ONE ×2 (03:52→10:33)
[2021-03-09] MEDS: metroNIDAZOLE/Normal Saline 500 MG in Premix Bag 1 BAG IV SCH ×2 (03:55→10:40)
[2021-03-09] MEDS: Benzonatate 100 MG Cap PO PRN ×3 (05:52→22:03)
[2021-03-09] MEDS: Acetaminophen/Codeine 300-30 MG Tab PO PRN ×2 (05:52→16:44)
[2021-03-09] MEDS: Sodium Chloride 0.9% 1,000 ML IV ONE (06:58)
--- NOTE | 2021-03-09 10:09 | PCM.HP.2 ---
H&P History of Present Illness - General Date of Service: 03/09/21 Admit Problem/Dx: Admission Diagnosis/Problem Admission Diagnosis/Problem Gastroenteritis Source of Information: Patient History Limitations: Reports: No Limitations - History of Present Illness Initial Comments - Free Text/Narative: patient with a h/o B-Cell lymphoma on Chemo - who presented to the ER due to loose stool/diarrhea and cough for 3 days. loose stool 15x/day - poor oral intake. Also reports that he has been experiencing a dry cough. Fever and chills. In the ER, he underwent multiple labs tests and imaging. Was found to be dehydrated, and CT scan showed possible pneumonia and enteritis. negative C.diff test. symptoms probably viral in illness - history if being around his grandkids who were coughing the day before his symptoms started. was admitted to the floor - IV was started, as well as, IV Abx. - Related Data Allergies/Adverse Reactions: Allergies Allergy/AdvReac Type Severity Reaction Status Date / Time No Known Allergies Allergy Verified 03/08/21 20:17 Home Medications: Home Meds Multivitamin [Multi-Vitamin Daily] 1 tab PO DAILY 03/08/21 [History] Past Medical History HEENT History: Reports: Impaired Vision Cardiovascular History: Reports: Hypertension Respiratory History: Reports: COPD, SOB Gastrointestinal History: Reports: Colon Polyp, Diverticulosis, Other (See Below) Other Gastrointestinal History: Severe diverticulitis Musculoskeletal History: Reports: Fracture Other Musculoskeletal History: right ankle Fracture Immunologic History: Reports: Immunosuppression Oncologic (Cancer) History: Reports: Non-Hodgkin's Lymphoma - Past Surgical History HEENT Surgical History: Reports: None Cardiovascular Surgical History: Reports: None Respiratory Surgical History: Reports: None GI Surgical History: Reports: None, Polypectomy Oncologic Surgical History: Reports: Bone Marrow Aspiration Social & Family History - Family History Family Medical History: No Pertinent Family History HEENT: Reports: None GI: Reports: None : Reports: None OBGYN: Reports: None Musculoskeletal: Reports: None Neurological: Reports: None Endocrine/Metabolic: Reports: None, Diabetes, type II Hematologic: Reports: None Oncologic: Reports: Colon, Liver, Non-Hodgkin's Lymphoma - Tobacco Use Tobacco Use Status *Q: Light Tobacco User Years of Tobacco use: 1 Packs/Tins Daily: 1 Used Tobacco, but Quit: No Second Hand Smoke Exposure: No - Caffeine Use Caffeine Use: Reports: Coffee Other Caffeine Use: half cup - Recreational Drug Use Recreational Drug Use: No H&P Review of Systems - Review of Systems: Review Of Systems: See Below General: Reports: Fever, Chills, Malaise, Fatigue HEENT: Reports: No Symptoms Pulmonary: Reports: Cough Cardiovascular: Reports: No Symptoms Gastrointestinal: Reports: Anorexia, Diarrhea Genitourinary: Reports: No Symptoms Musculoskeletal: Reports: No Symptoms Skin: Reports: No Symptoms Psychiatric: Reports: No Symptoms Neurological: Reports: No Symptoms Exam - Exam Exam: See Below - Vital Signs Vital Signs: Last Vital Signs Temp 37.6 C 03/09/21 05:47 Pulse 86 03/09/21 05:47 Resp 20 03/09/21 05:47 BP 139/75 03/09/21 05:47 Pulse Ox 95 03/09/21 05:47 Weight: 70.392 kg - Exam General: Alert, Oriented, Cooperative HEENT: PERRLA Lungs: Clear to Auscultation, Normal Respiratory Effort Cardiovascular: Regular Rate, Regular Rhythm GI/Abdominal Exam: Normal Bowel Sounds, Soft, Non-Tender Back Exam: Normal Inspection Extremities: Normal Inspection Skin: Warm Neuro Extensive - Mental Status: Alert, Oriented x3, Normal Mood/Affect Psychiatric: Alert, Normal Affect - Patient Data Lab Results Last 24 hrs: Laboratory Results - last 24 hr 03/08/21 03/08/21 03/08/21 Range/Units 17:30 17:31 17:31 WBC 16.3 H D (4.0-11.0) K/uL RBC 3.36 L (4.50-6.50) M/uL Hgb 11.8 L (13.0-18.0) g/dL Hct 32.9 L (40.0-54.0) % MCV 98 H (76-96) fL MCH 35.1 H (27.0-32.0) pg MCHC 35.9 H (31.0-35.0) g/dL RDW 15.7 (11.0-16.0) % Plt Count 117 L D (150-400) K/uL MPV 9.5 (6.0-10.0) fL Neut % (Auto) 95.0 H (45.0-70.0) % Lymph % (Auto) 1.7 L (20.0-40.0) % Williams % (Auto) 3.0 (3.0-10.0) % Eos % (Auto) 0.2 L (1.0-5.0) % Baso % (Auto) 0.1 (0.0-0.5) % Neut # (Auto) 15.44 H (2.00-7.50) K/uL Lymph # (Auto) 0.28 L (1.50-4.00) K/uL Williams # (Auto) 0.48 (0.20-0.80) K/uL Eos # (Auto) 0.04 (0.04-0.40) K/uL Baso # (Auto) 0.01 L (0.02-0.10) K/uL Sodium 129 L (136-145) mmol/L Potassium 3.5 D (3.5-5.1) mmol/L Chloride 97 L (98-107) mmol/L Carbon Dioxide 16.0 L D (21.0-32.0) mmol/L Anion Gap 19.5 H (5.0-15.0) mmol/L BUN 10 D (8-26) mg/dL Creatinine 0.95 (0.70-1.30) mg/dL Est Cr Clr Drug Dosing TNP Estimated GFR (MDRD) > 60 (>60) MLS/MIN BUN/Creatinine Ratio 10.5 (6-25) Glucose 168 H D (74-100) mg/dL Lactic Acid 1.2 (0.4-2.0) mmol/L Calcium 8.6 (8.5-10.1) mg/dL Total Bilirubin 1.0 D (0.0-1.0) mg/dL AST 27 (15-37) U/L ALT 36 (12-78) U/L Alkaline Phosphatase 176 H (46-116) U/L Total Protein 7.8 (6.4-8.2) g/dL Albumin 3.3 L (3.4-5.0) g/dL Globulin 4.5 H (2.2-4.2) g/dL Albumin/Globulin Ratio 0.7 L (0.8-2.0) Urine Color Urine Appearance (CLEAR) Urine pH (5.0-8.0) Ur Specific [place] (1.003-1.030) Urine Protein (NEGATIVE) mg/dL Urine Glucose (UA) (NEGATIVE) mg/dL Urine Ketones (NEGATIVE) mg/dL Urine Occult Blood (NEGATIVE) Urine Nitrite (NEGATIVE) Urine Bilirubin (NEGATIVE) Urine Urobilinogen (0.2-1.0) E.U./dL Ur Leukocyte Esterase (NEGATIVE) Urine RBC /HPF Urine WBC /HPF Ur Squamous Epith Cells /HPF SARS CoV-2 RNA Rapid AMADO 03/08/21 03/08/21 03/09/21 Range/Units 17:32 18:48 09:00 WBC 5.6 D (4.0-11.0) K/uL RBC 2.99 L (4.50-6.50) M/uL Hgb 10.2 L (13.0-18.0) g/dL Hct 29.6 L (40.0-54.0) % MCV 99 H (76-96) fL MCH 34.1 H (27.0-32.0) pg MCHC 34.5 (31.0-35.0) g/dL RDW 15.5 (11.0-16.0) % Plt Count 104 L (150-400) K/uL MPV 9.6 (6.0-10.0) fL Neut % (Auto) (45.0-70.0) % Lymph % (Auto) (20.0-40.0) % Williams % (Auto) (3.0-10.0) % Eos % (Auto) (1.0-5.0) % Baso % (Auto) (0.0-0.5) % Neut # (Auto) (2.00-7.50) K/uL Lymph # (Auto) (1.50-4.00) K/uL Williams # (Auto) (0.20-0.80) K/uL Eos # (Auto) (0.04-0.40) K/uL Baso # (Auto) (0.02-0.10) K/uL Sodium (136-145) mmol/L Potassium (3.5-5.1) mmol/L Chloride (98-107) mmol/L Carbon Dioxide (21.0-32.0) mmol/L Anion Gap (5.0-15.0) mmol/L BUN (8-26) mg/dL Creatinine (0.70-1.30) mg/dL Est Cr Clr Drug Dosing Estimated GFR (MDRD) (>60) MLS/MIN BUN/Creatinine Ratio (6-25) Glucose (74-100) mg/dL Lactic Acid (0.4-2.0) mmol/L Calcium (8.5-10.1) mg/dL Total Bilirubin (0.0-1.0) mg/dL AST (15-37) U/L ALT (12-78) U/L Alkaline Phosphatase (46-116) U/L Total Protein (6.4-8.2) g/dL Albumin (3.4-5.0) g/dL Globulin (2.2-4.2) g/dL Albumin/Globulin Ratio (0.8-2.0) Urine Color Yellow Urine Appearance Clear (CLEAR) Urine pH 6.5 (5.0-8.0) Ur Specific [place] >= 1.030 (1.003-1.030) Urine Protein >=300 H (NEGATIVE) mg/dL Urine Glucose (UA) Negative (NEGATIVE) mg/dL Urine Ketones Trace H (NEGATIVE) mg/dL Urine Occult Blood Trace-lysed H (NEGATIVE) Urine Nitrite Negative (NEGATIVE) Urine Bilirubin Negative (NEGATIVE) Urine Urobilinogen 0.2 (0.2-1.0) E.U./dL Ur Leukocyte Esterase Negative (NEGATIVE) Urine RBC 0-5 H /HPF Urine WBC 0-5 H /HPF Ur Squamous Epith Cells Few /HPF SARS CoV-2 RNA Rapid AMADO Negative 03/09/21 Range/Units 09:00 WBC (4.0-11.0) K/uL RBC (4.50-6.50) M/uL Hgb (13.0-18.0) g/dL Hct (40.0-54.0) % MCV (76-96) fL MCH (27.0-32.0) pg MCHC (31.0-35.0) g/dL RDW (11.0-16.0) % Plt Count (150-400) K/uL MPV (6.0-10.0) fL Neut % (Auto) (45.0-70.0) % Lymph % (Auto) (20.0-40.0) % Williams % (Auto) (3.0-10.0) % Eos % (Auto) (1.0-5.0) % Baso % (Auto) (0.0-0.5) % Neut # (Auto) (2.00-7.50) K/uL Lymph # (Auto) (1.50-4.00) K/uL Williams # (Auto) (0.20-0.80) K/uL Eos # (Auto) (0.04-0.40) K/uL Baso # (Auto) (0.02-0.10) K/uL Sodium 133 L (136-145) mmol/L Potassium 3.5 (3.5-5.1) mmol/L Chloride 102 (98-107) mmol/L Carbon Dioxide 15.9 L (21.0-32.0) mmol/L Anion Gap 18.6 H (5.0-15.0) mmol/L BUN 9 (8-26) mg/dL Creatinine 0.85 (0.70-1.30) mg/dL Est Cr Clr Drug Dosing 86.26 Estimated GFR (MDRD) > 60 (>60) MLS/MIN BUN/Creatinine Ratio 10.6 (6-25) Glucose 132 H (74-100) mg/dL Lactic Acid (0.4-2.0) mmol/L Calcium 7.9 L (8.5-10.1) mg/dL Total Bilirubin (0.0-1.0) mg/dL AST (15-37) U/L ALT (12-78) U/L Alkaline Phosphatase (46-116) U/L Total Protein (6.4-8.2) g/dL Albumin (3.4-5.0) g/dL Globulin (2.2-4.2) g/dL Albumin/Globulin Ratio (0.8-2.0) Urine Color Urine Appearance (CLEAR) Urine pH (5.0-8.0) Ur Specific [place] (1.003-1.030) Urine Protein (NEGATIVE) mg/dL Urine Glucose (UA) (NEGATIVE) mg/dL Urine Ketones (NEGATIVE) mg/dL Urine Occult Blood (NEGATIVE) Urine Nitrite (NEGATIVE) Urine Bilirubin (NEGATIVE) Urine Urobilinogen (0.2-1.0) E.U./dL Ur Leukocyte Esterase (NEGATIVE) Urine RBC /HPF Urine WBC /HPF Ur Squamous Epith Cells /HPF SARS CoV-2 RNA Rapid AMADO Result Diagrams: 03/09/21 09:00 03/09/21 09:00 Donald Results Last 24 hrs: Microbiology 03/08/21 17:31 Clostridioides difficile (PCR) - Final Stool / Feces Sepsis Event Note - Evaluation Sepsis Screening Result: Sepsis Risk - Focused Exam Vital Signs: Vital Signs Temp Temp Pulse Resp BP Pulse Ox 03/09/21 05:47 37.6 C 86 20 139/75 95 03/09/21 03:05 37.2 C 91 20 145/64 H 97 03/09/21 01:21 37.7 C 03/08/21 23:04 38.5 C H 82 22 H 123/54 L 96 03/08/21 22:10 38.7 C H - Problem List (1) Acute hyponatremia SNOMED Code(s): 2093651 ICD Code: E87.1 - HYPO-OSMOLALITY AND HYPONATREMIA Status: Acute Priority: Low Current Visit: Yes (2) Gastroenteritis SNOMED Code(s): 43265351 ICD Code: K52.9 - NONINFECTIVE GASTROENTERITIS AND COLITIS, UNSPECIFIED Status: Acute Priority: Medium Current Visit: Yes (3) Dehydration SNOMED Code(s): 01984652 ICD Code: E86.0 - DEHYDRATION Status: Acute Priority: Low Current Visit: Yes (4) Pneumonia SNOMED Code(s): 266535338 ICD Code: J18.9 - PNEUMONIA, UNSPECIFIED ORGANISM Status: Acute Priority: Low Current Visit: Yes Qualifiers: Pneumonia type: due to unspecified organism Laterality: unspecified laterality Lung location: unspecified part of lung Qualified Code(s): J18.9 - Pneumonia, unspecified organism Problem List Initiated/Reviewed/Updated: Yes Orders Last 24hrs: Active Orders 24 hr Category Date Time Status Admission Diagnosis [ADT] Stat ADT 03/08/21 20:01 Active Admission Status [Patient Status] [ADT] Routine ADT 03/08/21 20:02 Active Oxygen Therapy [RC] PRN Care 03/08/21 20:37 Active VTE/DVT Education [RC] Per Unit Routine Care 03/08/21 20:37 Active Vital Signs [RC] Q4H Care 03/08/21 20:37 Active Regular Diet [DIET] Diet 03/09/21 Breakfast Ordered Abdomen Pelvis w Cont [CT] Stat Exams 03/08/21 17:47 Taken CXR [Chest 1V Frontal] [CR] Stat Exams 03/08/21 17:47 Taken CULTURE BLOOD [BC] Stat Lab 03/08/21 17:31 Received CULTURE MRSA SURVEY [RM] Routine Lab 03/08/21 21:07 Received Acetaminophen/Codeine [Tylenol with Codeine No.3 300MG/ Med 03/08/21 20:39 Active 30MG] 1 tab PO Q6H PRN Benzonatate [Tessalon Perles] Med 03/08/21 22:49 Active 100 mg PO QID PRN Ciprofloxacin in D5W [Cipro in D5W 400 MG/200 ML] 400 Med 03/09/21 03:00 Active mg Premix Bag 1 bag IV Q8H Iopamidol [Isovue-300 (61%)] Med 03/08/21 18:15 Active 100 ml IV . DIRECTED Nicotine [Habitrol] Med 03/09/21 10:15 Ordered 14 mg TRDERM DAILY Ondansetron [Zofran ODT] Med 03/08/21 20:39 Active 4 mg PO Q4H PRN Sodium Chloride 0.9% [Saline Flush] Med 03/08/21 17:31 Active 10 ml FLUSH ASDIRECTED PRN cefTRIAXone [Rocephin] 1 gm Med 03/09/21 18:00 Active Sodium Chloride 0.9% [Normal Saline] 50 ml IV Q24H metroNIDAZOLE/Normal Saline [Flagyl in NS 500 MG/100 ML Med 03/09/21 03:00 Active ] 500 mg Premix Bag 1 bag IV Q8H Saline Lock Insert [OM.PC] Routine Oth 03/08/21 17:31 Ordered Resuscitation Status Routine Resus Stat 03/08/21 20:37 Ordered Medication Orders Acetaminophen/Codeine Phosphate (Acetaminophen/Codeine 300-30 Mg Tab) 1 tab PO Q6H PRN PRN Reason: Cough Last Admin: 03/09/21 05:52 Dose: 1 tab Documented by: Admin: 03/08/21 21:06 Dose: 1 tab Documented by: BARBARA Benzonatate (Benzonatate 100 Mg Cap) 100 mg PO QID PRN PRN Reason: Cough Last Admin: 03/09/21 05:52 Dose: 100 mg Documented by: Admin: 03/08/21 22:53 Dose: 100 mg Documented by: BARBARA Ciprofloxacin/Dextrose 400 mg/ (Premix) 200 mls @ 200 mls/hr IV Q8H [facility] Last Admin: 03/09/21 02:55 Dose: 200 mls/hr Documented by: BARBARA Metronidazole 500 mg/ Premix 100 mls @ 100 mls/hr IV Q8H [facility] Last Admin: 03/09/21 03:55 Dose: 100 mls/hr Documented by: BARBARA Ceftriaxone Sodium 1 gm/ (Sodium Chloride) 50 mls @ 100 mls/hr IV Q24H [facility] Iopamidol (Iopamidol 612 Mg/Ml 100 Ml Bottle) 100 ml IV . DIRECTED [facility] Last Admin: 03/08/21 18:21 Dose: 100 ml Documented by: MINDY Nicotine (Nicotine 14 Mg/24 Hr Patch) 14 mg TRDERM DAILY [facility] Ondansetron HCl (Ondansetron 4 Mg Tab.Dis) 4 mg PO Q4H PRN PRN Reason: Nausea/Vomiting Sodium Chloride (Sodium Chloride 0.9% 10 Ml Syringe) 10 ml FLUSH ASDIRECTED PRN PRN Reason: Keep Vein Open Assessment/Plan Comment:: 1- gastroenteritis: 2/2 viral illness ( negative C.diff test on 03/08/21) IVF hydration Zofran PRN. IV Cipro and IV Flagyl 2- acute hyponatremia: IVF for hydration until adequate PO intake as achieved 3- cough: possible 2/2 pneumonia. IV Rocephin 1gm q24 negative COVID test on 03/08( had his 2 shots ) Tessalon for cough 4- Dehydration: 2/2 GI loss and above. IVF and encourage PO intake 5- h/o non-Hodgkin lymphoma: on chemo therapy. no leukopenia. 6- resume rest of home meds as before 7- h/o smoking 1ppd: nicotine patch daily - Mortality Measure Prognosis:: Good
[2021-03-09] MEDS: Nicotine 14 MG/24 Hr Patch TRDERM SCH ×2 (10:40→21:10)
[2021-03-09] MEDS: Lactobacillus Acidophilus/Lactobacillus Sporogenes (Probiotic) Tab PO SCH (10:40)
--- NOTE | 2021-03-09 10:56 | CT ---
Date of Service: 03/08/21 Clinical Data: diarrhea, chills ENHANCED ABDOMEN AND PELVIC CT: Multislice axial acquisition through the abdomen and pelvis with IV contrast, but without oral contrast was performed. Comparison was made to a prior exam dated 09/04/17. There are a few scattered ground-glass opacities within the the lung bases. Pneumonia/pneumonitis should be considered, There is a 3.0 cm pleural-based mass within the left angle costophrenic angle posteromedially. There is also a masslike density adjacent to the major fissure on the left inferiorly just above the left hemidiaphragm. There may be areas of scarring and fibrosis. Malignancy cannot be excluded. Lung bases are otherwise clear. The heart size is normal. There is a small hiatal hernia. There is diffuse fatty infiltration of the liver. No focal hepatic lesions. The gallbladder appears normal. No biliary duct dilatation. The spleen appears normal. The pancreas appears normal. The right and left adrenals appear normal. There is a 3.5 cm benign appearing cyst on the lower pole of the left kidney. There are a couple of small subcentimeter low density lesions within the left kidney which are probably cysts. They are, however, too small to adequately characterize. The right and left kidneys enhance symmetrically. No hydronephrosis or hydroureter. There is a small amount of fluid within the bladder. It appears grossly normal. The appendix is not dilated. No evidence of appendicitis. There are a few scattered air-fluid levels within the small bowel and colon. No distended loops of bowel. Enterocolitis should be considered. There is diverticulosis of the descending and sigmoid colon. No evidence of diverticulitis. There is mural thickening throughout the proximal and mid sigmoid colon. This is probably due to chronic diverticular disease. Colonoscopy should be considered to exclude an infiltrating process. There is a single enlarged periaortic lymph node on the left. No other adenopathy. No free air. No free fluid. No dilated loops of bowel. There is a fat-containing right inguinal hernia. There is degenerative disease throughout the lower thoracic and lumbar spine. No other significant findings. [id number] [facility]
--- NOTE | 2021-03-09 12:14 | CR ---
Date of Service: 03/08/21 Clinical Data: cough AP CHEST: The heart size is normal. There is calcification of the aortic arch. The lungs are clear. No pneumothorax. No pleural effusions. No evidence of acute intrathoracic disease. [id number] MTDD
[2021-03-09] MEDS ORDERED: methylPREDNISolone Sodium Succinate 40 MG/1 ML SDV IVPUSH STA (16:57)
[2021-03-09] MEDS ORDERED: cefTRIAXone 1 GM in Sodium Chloride 0.9% 50 ML IV SCH (18:00)
[2021-03-09] MEDS: metroNIDAZOLE 500 MG Tab PO SCH (19:12)
[2021-03-09] MEDS ORDERED: guaiFENesin 100 MG/5 ML Soln 10 ML UD Cup ONE (20:55)
[2021-03-09] MEDS ORDERED: guaiFENesin 100 MG/5 ML Soln 10 ML UD Cup PO PRN (21:01)
[2021-03-09] MEDS: Piperacillin/Tazobactam 3.375 GM in Sodium Chloride 0.9% 100 ML IV SCH (21:03)
[2021-03-10] MEDS: Piperacillin/Tazobactam 3.375 GM in Sodium Chloride 0.9% 100 ML IV SCH ×5 (01:12→20:43)
[2021-03-10] MEDS: Acetaminophen/Codeine 300-30 MG Tab PO PRN ×4 (01:23→23:09)
[2021-03-10] MEDS: Nicotine 14 MG/24 Hr Patch TRDERM SCH (09:31)
[2021-03-10] MEDS: Lactobacillus Acidophilus/Lactobacillus Sporogenes (Probiotic) Tab PO SCH (09:32)
[2021-03-10] MEDS: metroNIDAZOLE 500 MG Tab PO SCH ×3 (09:32→20:37)
[2021-03-10] MEDS: Benzonatate 100 MG Cap PO PRN ×3 (10:54→23:09)
[2021-03-10] MEDS ORDERED: Albuterol/Ipratropium 3.0-0.5 MG/3 ML Neb Soln NEB PRN (17:25)
[2021-03-10] MEDS ORDERED: Albuterol/Ipratropium 3.0-0.5 MG/3 ML Neb Soln ONE (17:28)
[2021-03-11] MEDS: Piperacillin/Tazobactam 3.375 GM in Sodium Chloride 0.9% 100 ML IV SCH ×2 (02:17→09:28)
[2021-03-11] MEDS: Lactobacillus Acidophilus/Lactobacillus Sporogenes (Probiotic) Tab PO SCH (09:28)
[2021-03-11] MEDS: Nicotine 14 MG/24 Hr Patch TRDERM SCH (09:28)
[2021-03-11] MEDS: metroNIDAZOLE 500 MG Tab PO SCH (09:28)
[2021-03-11] MEDS: Acetaminophen/Codeine 300-30 MG Tab PO PRN (09:58)
[2021-03-11] MEDS: Benzonatate 100 MG Cap PO PRN (09:58)
[2021-03-11 11:59] VITALS: BP 134/75; PULSE 68
--- NOTE | 2021-03-11 12:45 | PN ---
DATE OF VISIT: 03/10/2021 SUBJECTIVE: This is a 65-year-old male admitted 2 days ago for abdominal pain, dehydration, and diarrhea. The patient has been on multiple antibiotics. I understand he was not feeling very well yesterday, but now today he is doing much better. When entering the room, the patient tells me that he feels a lot better today and he is wondering if he can go home. Nursing staff states that he is still has not been eating much for solid food, but has been drinking liquids okay. OBJECTIVE: VITAL SIGNS: Today reveal he is afebrile, temp is 97.6, blood pressure 137/67, pulse 71, respirations between 17 and 22. GENERAL APPEARANCE: The patient is awake and alert. No obvious distress. LUNGS: Clear today without rales, wheezes, or rhonchi. The patient tells me he is still coughing that is nonproductive. CARDIAC: Heart sounds distinct. S1, S2 present. Regular rate. No murmurs. ABDOMEN: Soft, nontender. Bowel sounds are present and active. SKIN: Warm and dry. ASSESSMENT AND PLAN: In reviewing the patient's labs, CBC today shows a normal WBC. He came in with a white count of 16.3. The patient is currently on chemo treatments for lymphoma. He tells me he usually does not react like this. At this point, I had a conversation with pharmacy about his medications. He is currently taking vancomycin, Rocephin, Flagyl, and Zosyn. We will reduce the antibiotics somewhat today. His also showed up at about this point in time and is very concerned about his condition, stating that he feels better today, but last evening he was not doing well. She very much wants him to stay in the hospital another day for monitoring, and I feel this is reasonable. Further discussion with the pharmacy resulted in the patient continuing on Zosyn and Flagyl, discontinuing Rocephin and vancomycin. He will be watched closely for another day to monitor for ongoing progress. CRS/MODL /[id number]
--- NOTE | 2021-03-12 07:09 | PN ---
DATE OF VISIT: 03/10/2021 HISTORY OF PRESENT ILLNESS: This is a 65-year-old male who was admitted through the ER with weakness, loose stools, abdominal pain, and questionable pneumonia. Pneumonia had been ruled out and he has been on antibiotics that include vancomycin, Rocephin, Flagyl and Zosyn. I did have a consult with pharmacy today about the large amount of antibiotics the patient is taking and we will reduce this today. The patient states he feels better. He was not doing well until late last night, but now his symptoms are much better and he is wondering about going home. Vital signs today reveal a temp of 97.6, blood pressure 137/67, pulse 71, respirations between 17 and 22. The patient has had some coughing episodes, but at this point he is not complaining of any pain. His labs reveal his white count was elevated when he arrived, but it is down to a normal WBC of 4.8. The patient does have cancer and is on chemo treatments. Pharmacy is concerned that some of his symptoms could be related to his most recent chemo treatment. OBJECTIVE: GENERAL: The patient is awake and alert. He is talkative. LUNGS: I do not experience any coughing episodes while visiting with the patient today. Lung sounds reveals slightly reduced air exchange. I do not hear any rales, wheezes, or rhonchi. CARDIAC: Heart sounds distinct without murmurs. ABDOMEN: Soft, nontender. SKIN: Warm and dry. ASSESSMENT AND PLAN: I also spoke with the patient's who is quite concerned about him since he was not doing well until just hours ago. We will keep the patient for 1 more day, discontinuing vancomycin and Rocephin, keeping him on Zosyn and Flagyl. The patient will be watched closely, and if things are still going well tomorrow, he would be a candidate for discharge. CRS/MODL /[id number]
== END 2021-03-11 12:00 | disposition home or self-care (01) | DRG 392 ==
LOC: LB.ED 16:59 → LB.MS 20:02 → UNDOADMIN 20:24
PROVIDERS: ADMIT Surgery; ATTEND Surgery
DX: J18.9 Pneumonia, unspecified organism (principal); K52.9 Noninfective gastroenteritis and colitis, unspecified; D84.9 Immunodeficiency, unspecified; C85.90 Non-Hodgkin lymphoma, unspecified, unspecified site; E87.1 Hypo-osmolality and hyponatremia; E86.0 Dehydration; H54.7 Unspecified visual loss; I10 Essential (primary) hypertension; Z20.822 Contact with and (suspected) exposure to COVID-19; J44.9 Chronic obstructive pulmonary disease, unspecified; K57.90 Diverticulosis of intestine, part unspecified, without perforation or abscess without bleeding; Z86.010 Personal history of colon polyps; Z98.890 Other specified postprocedural states; Z79.899 Other long term (current) drug therapy; Z87.891 Personal history of nicotine dependence
CPT/HCPCS: 36415; 71045; 74177; 80048; 80053; 81001; 83605; 85025; 85027; 86140; 87040; 87493; 96365; 96368; 99285-25; A9270-GY; J0696; J0744; J2543; J2920; J3370; J3490; J7030; J7050; J7620-GY; Q9967; U0002

== ENCOUNTER 2023-06-25 15:24 | Emergency (ER) | payer MEDICARE, OTHER ==
[2023-06-25] MEDS: Aspirin 81 MG Tab.Chew PO ONE (15:35)
[2023-06-25] MEDS: Sodium Chloride 0.9% 50 ML SDV FLUSH SCH (17:45)
[2023-06-25] MEDS: Iopamidol 755 Mg/ML 100 ML Bottle IV PRN (17:45)
== END 2023-06-25 19:00 | disposition home or self-care (01) ==
LOC: LB.ED 15:24
DX: R07.89 Other chest pain (principal); I10 Essential (primary) hypertension; J44.9 Chronic obstructive pulmonary disease, unspecified; F17.210 Nicotine dependence, cigarettes, uncomplicated; Z79.82 Long term (current) use of aspirin; Z79.899 Other long term (current) drug therapy
CPT/HCPCS: 36415; 71260; 84484; 85379; 93005; 93010; 99283; 99285; A9270-GY; J3490; Q9967

== ENCOUNTER 2023-08-25 13:46 | Inpatient (IN) | payer MEDICARE, OTHER ==
[2023-08-25] MEDS ORDERED: Benzonatate 100 MG Cap PO PRN (14:12)
[2023-08-25] MEDS: Sodium Chloride 0.9% 1,000 ML IV SCH (15:00)
[2023-08-25] MEDS: FLUCYTOSINE 500 MG PO SCH (20:06)
[2023-08-26] MEDS: Sodium Chloride 0.9% 1,000 ML IV SCH ×3 (00:40→23:34)
[2023-08-26] MEDS: FLUCYTOSINE 500 MG PO SCH ×4 (02:28→20:23)
[2023-08-26] MEDS ORDERED: Non-Formulary Medication 1 Each (Multivitamin [Multi-Vitamin Daily] 1 EACH Tablet) PO SCH (08:00)
[2023-08-26] MEDS ORDERED: Potassium Chloride 20 MEQ Tab.ER ONE (08:13)
[2023-08-26] MEDS: Potassium Chloride 20 MEQ Tab.ER PO SCH ×3 (08:16→12:21)
[2023-08-26] MEDS: Multivitamins with Iron/Calcium/Folic Acid/Minerals Tab PO SCH (08:16)
[2023-08-26] MEDS: SLOW MAG PO SCH (08:17)
[2023-08-26 09:18] LABS: ANION GAP 15.9 mmol/L (5.0-15.0); BUN/CREATININE RATIO 10.5 (6-25); CALCIUM 9.4 mg/dL (8.5-10.1); CREATININE 0.86 mg/dL (0.70-1.30); EST CRCL DRUG DOSING (CG) 78.06 mL/min; MAGNESIUM 1.9 mg/dL (1.8-2.4); PHOSPHORUS 3.3 mg/dL (2.5-4.9); POTASSIUM,K 3.9 mmol/L (3.5-5.1)
[2023-08-26] MEDS: WATER IV SCH ×2 (10:50)
[2023-08-26] MEDS: DEXTROSE 5% IV SCH ×2 (10:50)
[2023-08-26] MEDS: AMPHOTERICIN B LIPOSOMAL IV SCH ×2 (10:50)
[2023-08-26] MEDS: Dextrose 5% in Water 100 ML IV SCH (13:25)
[2023-08-27] MEDS: FLUCYTOSINE 500 MG PO SCH ×4 (02:00→20:33)
[2023-08-27] MEDS: Multivitamins with Iron/Calcium/Folic Acid/Minerals Tab PO SCH (07:49)
[2023-08-27] MEDS: SLOW MAG PO SCH (07:49)
[2023-08-27 08:01] LABS: BUN/CREATININE RATIO 10.5 (6-25); CALCIUM 9.1 mg/dL (8.5-10.1); CREATININE 0.86 mg/dL (0.70-1.30); EST CRCL DRUG DOSING (CG) 78.22 mL/min; MAGNESIUM 1.8 mg/dL (1.8-2.4); PHOSPHORUS 3.6 mg/dL (2.5-4.9); POTASSIUM,K 3.9 mmol/L (3.5-5.1)
[2023-08-27] MEDS: Potassium Chloride 20 MEQ Tab.ER PO SCH ×2 (08:12→13:24)
[2023-08-27] MEDS: Sodium Chloride 0.9% 1,000 ML IV SCH ×2 (09:40→21:39)
[2023-08-27 09:54] LABS: ANION GAP 14.9 mmol/L (5.0-15.0)
[2023-08-27] MEDS: AMPHOTERICIN B LIPOSOMAL IV SCH ×2 (11:06)
[2023-08-27] MEDS: DEXTROSE 5% IV SCH ×2 (11:06)
[2023-08-27] MEDS: WATER IV SCH ×2 (11:06)
[2023-08-27] MEDS: Dextrose 5% in Water 100 ML IV SCH (13:21)
[2023-08-28] MEDS: FLUCYTOSINE 500 MG PO SCH ×4 (03:05→20:46)
[2023-08-28] MEDS: Multivitamin Tab PO SCH (07:46)
[2023-08-28] MEDS: Potassium Chloride 20 MEQ Tab.ER PO SCH ×2 (07:46→12:55)
[2023-08-28] MEDS: SLOW MAG PO SCH (07:47)
[2023-08-28] MEDS: Sodium Chloride 0.9% 1,000 ML IV SCH (07:48)
[2023-08-28 09:25] LABS: ANION GAP 13.4 mmol/L (5.0-15.0); BUN/CREATININE RATIO 8.6 (6-25); CALCIUM 9.4 mg/dL (8.5-10.1); CARBON DIOXIDE,CO2 19.2 mmol/L (21.0-32.0); CREATININE 0.93 mg/dL (0.70-1.30); EST CRCL DRUG DOSING (CG) 73.11 mL/min; POTASSIUM,K 3.6 mmol/L (3.5-5.1)
[2023-08-28] MEDS: DEXTROSE 5% IV SCH ×2 (10:53)
[2023-08-28] MEDS: WATER IV SCH ×2 (10:53)
[2023-08-28] MEDS: AMPHOTERICIN B LIPOSOMAL IV SCH ×2 (10:53)
[2023-08-28] MEDS: Sodium Chloride 1 GM Tab PO SCH ×3 (12:55→20:48)
[2023-08-28] MEDS ORDERED: Sodium Chloride 3% 500 ML IV ONE (13:00)
[2023-08-28] MEDS ORDERED: Sodium Chloride 1 GM Tab PO SCH (14:00)
[2023-08-28 19:26] LABS: ANION GAP 13.1 mmol/L (5.0-15.0); BUN/CREATININE RATIO 11.6 (6-25); CALCIUM 9.4 mg/dL (8.5-10.1); CARBON DIOXIDE,CO2 20.1 mmol/L (21.0-32.0); CREATININE 0.95 mg/dL (0.70-1.30); EST CRCL DRUG DOSING (CG) 71.57 mL/min; POTASSIUM,K 4.2 mmol/L (3.5-5.1)
[2023-08-29] MEDS ORDERED: Sodium Chloride 0.9% 1,000 ML IV SCH (00:30)
[2023-08-29] MEDS: FLUCYTOSINE 500 MG PO SCH ×3 (01:00→14:13)
[2023-08-29] MEDS: Potassium Chloride 20 MEQ Tab.ER PO SCH ×2 (07:44→13:30)
[2023-08-29] MEDS: SLOW MAG PO SCH (07:44)
[2023-08-29] MEDS: Sodium Chloride 1 GM Tab PO SCH ×2 (07:45→14:13)
[2023-08-29] MEDS: Multivitamin Tab PO SCH (07:45)
[2023-08-29 08:06] LABS: ANION GAP 11.4 mmol/L (5.0-15.0); BUN/CREATININE RATIO 10.7 (6-25); CALCIUM 9.2 mg/dL (8.5-10.1); CARBON DIOXIDE,CO2 20.3 mmol/L (21.0-32.0); CREATININE 0.84 mg/dL (0.70-1.30); EST CRCL DRUG DOSING (CG) 80.94 mL/min; POTASSIUM,K 3.7 mmol/L (3.5-5.1)
[2023-08-29] MEDS: WATER IV SCH ×2 (10:56)
[2023-08-29] MEDS: AMPHOTERICIN B LIPOSOMAL IV SCH ×2 (10:56)
[2023-08-29] MEDS: DEXTROSE 5% IV SCH ×2 (10:56)
[2023-08-29] MEDS: Dextrose 5% in Water 100 ML IV SCH (10:59)
[2023-08-29] MEDS ORDERED: Sodium Chloride 1 GM Tab ONE ×2 (14:10)
== END 2023-08-29 14:19 | disposition home or self-care (01) | DRG 640 ==
LOC: LB.MS 13:50
PROVIDERS: ADMIT Surgery; ATTEND Surgery
DX: E87.1 Hypo-osmolality and hyponatremia (principal); J16.8 Pneumonia due to other specified infectious organisms; J44.0 Chronic obstructive pulmonary disease with (acute) lower respiratory infection; E83.42 Hypomagnesemia; E87.8 Other disorders of electrolyte and fluid balance, not elsewhere classified; I10 Essential (primary) hypertension; Z87.891 Personal history of nicotine dependence; Z86.010 Personal history of colon polyps; Z98.890 Other specified postprocedural states
CPT/HCPCS: 36415; 80048; 83735; 84100; 93010; 99222; 99232; 99238; A9270-GY; J0289; J7030; J7060; J7131

== ENCOUNTER 2024-02-14 11:04 | Observation (INO) | payer MEDICARE, OTHER ==
[2024-02-14] MEDS ORDERED: Sodium Chloride 0.9% 10 ML Syringe FLUSH PRN (11:07)
[2024-02-14] MEDS: Morphine 4 MG/ML VIAL IVPUSH ONE (11:20)
[2024-02-14] MEDS: Ondansetron 4 MG/2 ML SDV IVPUSH ONE (11:20)
[2024-02-14] MEDS: Sodium Chloride 0.9% 1,000 ML IV SCH ×2 (11:34→16:06)
[2024-02-14 11:39] LABS: HEMATOCRIT 40.8 % (40.0-54.0); HEMOGLOBIN 14.3 g/dL (13.0-18.0); MEAN CORPUSCULAR HEMOGLOBIN 32.4 pg (27.0-32.0); MEAN PLATELET VOLUME 8.7 fL (6.0-10.0); RED BLOOD CELL COUNT 4.41 M/uL (4.50-6.50); RED CELL DISTRIBUTION WIDTH 14.1 % (11.0-16.0); WHITE BLOOD CELL COUNT,WBC 6.2 K/uL (4.0-11.0)
[2024-02-14 11:59] LABS: C-REACTIVE PROTEIN 20.5 mg/L (<5.0)
[2024-02-14 12:01] LABS: A/G RATIO 0.6 (0.8-2.0); ALBUMIN 3.6 g/dL (3.4-5.0); ANION GAP 13.3 mmol/L (5.0-15.0); BILIRUBIN TOTAL 0.6 mg/dL (0.0-1.0); BUN/CREATININE RATIO 7.2 (6-25); CALCIUM 9.9 mg/dL (8.5-10.1); CREATININE 0.83 mg/dL (0.70-1.30); EST CRCL DRUG DOSING (CG) 83.07 mL/min; POTASSIUM,K 3.3 mmol/L (3.5-5.1); PROTEIN TOTAL,TP 9.2 g/dL (6.4-8.2)
[2024-02-14] MEDS: Sodium Chloride 0.9% 50 ML SDV FLUSH ONE (12:13)
[2024-02-14] MEDS: Iopamidol 612 MG/ML 100 ML Bottle IV SCH (12:13)
[2024-02-14 12:27] LABS: APPEARANCE,URINE CLEAR (CLEAR); BILIRUBIN,URINE NEGATIVE (NEGATIVE); COLOR,URINE YELLOW; GLUCOSE,URINE NEGATIVE (NEGATIVE); KETONES,URINE NEGATIVE (NEGATIVE); LEUKOCYTE ESTERASE,URINE NEGATIVE (NEGATIVE); NITRITE,URINE NEGATIVE (NEGATIVE); OCCULT BLOOD,URINE NEGATIVE (NEGATIVE); PROTEIN,URINE NEGATIVE (NEGATIVE); UROBILINOGEN,URINE 0.2 E.U./dL (0.2-1.0)
[2024-02-14] MEDS: Potassium Chloride 20 MEQ Tab.ER PO SCH (12:46)
[2024-02-14] MEDS: Piperacillin/Tazobactam 4.5 GM in Sodium Chloride 0.9% 100 ML IV ONE (12:46)
[2024-02-14] MEDS ORDERED: Nicotine Polacrilex 2 MG Loz CHEW PRN (13:57)
[2024-02-14] MEDS: Nicotine 14 MG/24 Hr Patch TRDERM SCH (16:01)
[2024-02-14] MEDS: traMADol 50 MG Tab PO PRN (16:05)
[2024-02-14] MEDS: Piperacillin/Tazobactam 4.5 GM in Sodium Chloride 0.9% 100 ML IV SCH (18:38)
[2024-02-14] MEDS: Morphine 4 MG/ML VIAL IVPUSH PRN (22:48)
[2024-02-15] MEDS: Aspirin 81 MG Tab.EC PO SCH (07:48)
[2024-02-15] MEDS ORDERED: FLUCONAZOLE 200 MG PO SCH (08:00)
[2024-02-15 10:57] LABS: BASOPHILS ABSOLUTE AUTO 0.04 K/uL (0.02-0.10); BASOPHILS PERCENT AUTO 0.5 % (0.0-0.5); EOSINOPHILS ABSOLUTE AUTO 0.22 K/uL (0.04-0.40); HEMATOCRIT 35.6 % (40.0-54.0); HEMOGLOBIN 12.1 g/dL (13.0-18.0); LYMPHOCYTES ABSOLUTE AUTO 1.72 K/uL (1.50-4.00); LYMPHOCYTES PERCENT AUTO 23.2 % (20.0-40.0); MEAN CORPUSCULAR HEMOGLOBIN 32.2 pg (27.0-32.0); MEAN CORPUSCULAR VOLUME 95 fL (76-96); MEAN PLATELET VOLUME 8.7 fL (6.0-10.0); MONOCYTES ABSOLUTE AUTO 0.47 K/uL (0.20-0.80); MONOCYTES PERCENT AUTO 6.3 % (3.0-10.0); NEUTROPHILS ABSOLUTE AUTO 4.97 K/uL (2.00-7.50); PLATELET COUNT,PLT 183 K/uL (150-400); RED BLOOD CELL COUNT 3.76 M/uL (4.50-6.50); RED CELL DISTRIBUTION WIDTH 14.2 % (11.0-16.0); WHITE BLOOD CELL COUNT,WBC 7.4 K/uL (4.0-11.0)
[2024-02-15 11:29] LABS: A/G RATIO 0.6 (0.8-2.0); ALBUMIN 2.8 g/dL (3.4-5.0); ANION GAP 15.1 mmol/L (5.0-15.0); BILIRUBIN TOTAL 0.7 mg/dL (0.0-1.0); C-REACTIVE PROTEIN 37.1 mg/L (<5.0); CALCIUM 8.3 mg/dL (8.5-10.1); CARBON DIOXIDE,CO2 18.2 mmol/L (21.0-32.0); CREATININE 0.84 mg/dL (0.70-1.30); EST CRCL DRUG DOSING (CG) 75.33 mL/min; POTASSIUM,K 3.3 mmol/L (3.5-5.1); PROTEIN TOTAL,TP 7.2 g/dL (6.4-8.2)
[2024-02-15] MEDS ORDERED: metroNIDAZOLE/Normal Saline 100 ML IV SCH (11:45)
[2024-02-15] MEDS: metroNIDAZOLE/Normal Saline 100 ML IV SCH (13:22)
[2024-02-15] MEDS: Pantoprazole 40 MG Vial IVPUSH ONE (13:22)
[2024-02-15] MEDS: GI Cocktail Oral Solution 30 ML PO ONE (13:22)
[2024-02-15] MEDS: Ketorolac 30 MG/ML SDV IVPUSH ONE (14:46)
[2024-02-15] MEDS: Ketorolac 30 MG/ML SDV ONE (14:47)
[2024-02-15] MEDS: Ciprofloxacin in D5W 200 ML IV ONE (15:09)
[2024-02-15 15:54] VITALS: BP 131/68; PULSE 69
[2024-02-15] MEDS ORDERED: Ciprofloxacin in D5W 200 ML IV SCH (20:00)
== END 2024-02-15 16:05 | disposition home or self-care (01) ==
LOC: LB.ED 11:04 → LB.MS 13:57
PROVIDERS: ADMIT Surgery; ATTEND Surgery
DX: K57.30 Diverticulosis of large intestine without perforation or abscess without bleeding (principal); K29.00 Acute gastritis without bleeding; I10 Essential (primary) hypertension; J44.9 Chronic obstructive pulmonary disease, unspecified; F41.9 Anxiety disorder, unspecified; Z79.82 Long term (current) use of aspirin; Z79.899 Other long term (current) drug therapy
CPT/HCPCS: 36415; 74177; 80053; 81003; 83605; 83690; 83735; 85025; 85027; 86140; 96361; 96365; 96366; 96367; 96375; 96376; 99285; A9270; C9113; G0378; J0744; J1836; J1885; J2270; J2405; J2543; J3490; J7030; Q9967

== ENCOUNTER 2024-03-01 14:13 | Emergency (ER) | payer MEDICARE, OTHER ==
[2024-03-01] MEDS ORDERED: cefTRIAXone 1 GM Vial ONE (14:41)
[2024-03-01] MEDS: cefTRIAXone 1 GM Vial IM ONE (14:43)
== END 2024-03-01 14:48 | disposition home or self-care (01) ==
LOC: LB.ED 14:13
DX: L03.116 Cellulitis of left lower limb (principal); I10 Essential (primary) hypertension; J44.9 Chronic obstructive pulmonary disease, unspecified; F17.210 Nicotine dependence, cigarettes, uncomplicated; Z79.82 Long term (current) use of aspirin; Z79.899 Other long term (current) drug therapy
CPT/HCPCS: 96372; 99283; J0696

== ENCOUNTER 2024-04-02 14:07 | Emergency (ER) | payer MEDICARE, OTHER ==
[2024-04-02 15:23] LABS: BASOPHILS ABSOLUTE AUTO 0.03 K/uL (0.02-0.10); BASOPHILS PERCENT AUTO 0.4 % (0.0-0.5); EOSINOPHILS ABSOLUTE AUTO 0.08 K/uL (0.04-0.40); EOSINOPHILS PERCENT AUTO 1.2 % (1.0-5.0); HEMOGLOBIN 13.8 g/dL (13.0-18.0); LYMPHOCYTES ABSOLUTE AUTO 1.53 K/uL (1.50-4.00); LYMPHOCYTES PERCENT AUTO 22.3 % (20.0-40.0); MEAN CORPUSCULAR HEMOGLOBIN 32.7 pg (27.0-32.0); MEAN CORPUSCULAR HGB CONC 34.5 g/dL (31.0-35.0); MEAN CORPUSCULAR VOLUME 95 fL (76-96); MEAN PLATELET VOLUME 8.7 fL (6.0-10.0); MONOCYTES ABSOLUTE AUTO 0.46 K/uL (0.20-0.80); MONOCYTES PERCENT AUTO 6.7 % (3.0-10.0); NEUTROPHILS ABSOLUTE AUTO 4.75 K/uL (2.00-7.50); NEUTROPHILS PERCENT AUTO 69.4 % (45.0-70.0); PLATELET COUNT,PLT 220 K/uL (150-400); RED BLOOD CELL COUNT 4.22 M/uL (4.50-6.50); WHITE BLOOD CELL COUNT,WBC 6.9 K/uL (4.0-11.0)
[2024-04-02 15:36] LABS: APPEARANCE,URINE CLEAR (CLEAR); BILIRUBIN,URINE SMALL (NEGATIVE); COLOR,URINE YELLOW; GLUCOSE,URINE NEGATIVE (NEGATIVE); KETONES,URINE 15 mg/dL (NEGATIVE); LEUKOCYTE ESTERASE,URINE NEGATIVE (NEGATIVE); NITRITE,URINE NEGATIVE (NEGATIVE); OCCULT BLOOD,URINE NEGATIVE (NEGATIVE); PROTEIN,URINE 30 mg/dL (NEGATIVE); UROBILINOGEN,URINE 0.2 E.U./dL (0.2-1.0)
[2024-04-02 15:38] LABS: RBC,URINE 0-5 /HPF; SQUAMOUS EPITHELIAL CELLS,UR OCCASIONAL /HPF; WBC,URINE NOT SEEN /HPF
[2024-04-02 15:39] LABS: A/G RATIO 0.6 (0.8-2.0); ALANINE AMINOTRANSFERASE,ALT 20 U/L (12-78); ALBUMIN 3.2 g/dL (3.4-5.0); ALKALINE PHOSPHATASE 98 U/L (46-116); ANION GAP 14.9 mmol/L (5.0-15.0); ASPARTATE AMNIOTRANSFERASE,AST 17 U/L (15-37); BILIRUBIN TOTAL 0.6 mg/dL (0.0-1.0); BLOOD UREA NITROGEN,BUN 8 mg/dL (8-26); BUN/CREATININE RATIO 9.8 (6-25); CALCIUM 10.1 mg/dL (8.5-10.1); CARBON DIOXIDE,CO2 22.8 mmol/L (21.0-32.0); CHLORIDE,CL 100 mmol/L (98-107); CREATININE 0.82 mg/dL (0.70-1.30); ESTIMATED GFR 96 mL/min (>60); GLUCOSE RANDOM 121 mg/dL (74-100); POTASSIUM,K 3.7 mmol/L (3.5-5.1); PROTEIN TOTAL,TP 8.2 g/dL (6.4-8.2); SODIUM,NA 134 mmol/L (136-145)
[2024-04-02] MEDS: Sodium Chloride 0.9% 10 ML Syringe FLUSH ONE (16:08)
[2024-04-02] MEDS: Sodium Chloride 0.9% 50 ML SDV FLUSH ONE (16:08)
[2024-04-02] MEDS: Iopamidol 612 MG/ML 100 ML Bottle IV SCH (16:08)
[2024-04-02] MEDS ORDERED: Ciprofloxacin 500 MG Tab ONE (17:00)
[2024-04-02] MEDS ORDERED: metroNIDAZOLE 500 MG Tab ONE (17:00)
[2024-04-02] MEDS: metroNIDAZOLE 500 MG Tab PO ONE (17:45)
== END 2024-04-02 18:00 | disposition home or self-care (01) ==
LOC: LB.ED 14:07
DX: K57.32 Diverticulitis of large intestine without perforation or abscess without bleeding (principal); I10 Essential (primary) hypertension; J44.9 Chronic obstructive pulmonary disease, unspecified; Z79.51 Long term (current) use of inhaled steroids; Z79.82 Long term (current) use of aspirin
CPT/HCPCS: 36415; 74177; 80053; 81001; 85025; 99284; A9270-GY; J3490; Q9967

== ENCOUNTER 2024-06-27 11:40 | Inpatient (IN) | payer MEDICARE, OTHER ==
[2024-06-27] MEDS ORDERED: Sodium Chloride 0.9% 10 ML Syringe FLUSH PRN (12:47)
[2024-06-27] MEDS: Sodium Chloride 0.9% 1,000 ML IV SCH ×2 (13:10→14:08)
[2024-06-27 13:22] LABS: EOSINOPHILS ABSOLUTE AUTO 0.01 K/uL (0.04-0.40); EOSINOPHILS PERCENT AUTO 0.4 % (1.0-5.0); HEMATOCRIT 37.7 % (40.0-54.0); HEMOGLOBIN 14.1 g/dL (13.0-18.0); LYMPHOCYTES ABSOLUTE AUTO 0.61 K/uL (1.50-4.00); LYMPHOCYTES PERCENT AUTO 22.8 % (20.0-40.0); MEAN CORPUSCULAR HEMOGLOBIN 33.6 pg (27.0-32.0); MEAN CORPUSCULAR HGB CONC 37.4 g/dL (31.0-35.0); MEAN CORPUSCULAR VOLUME 90 fL (76-96); MONOCYTES ABSOLUTE AUTO 0.28 K/uL (0.20-0.80); MONOCYTES PERCENT AUTO 10.5 % (3.0-10.0); NEUTROPHILS ABSOLUTE AUTO 1.77 K/uL (2.00-7.50); NEUTROPHILS PERCENT AUTO 66.3 % (45.0-70.0); PLATELET COUNT,PLT 215 K/uL (150-400); RED CELL DISTRIBUTION WIDTH 12.8 % (11.0-16.0)
[2024-06-27 13:43] LABS: LACTIC ACID 1.6 mmol/L (0.4-2.0)
[2024-06-27 13:54] LABS: A/G RATIO 0.6 (0.8-2.0); ALBUMIN 2.6 g/dL (3.4-5.0); BILIRUBIN TOTAL 0.9 mg/dL (0.0-1.0); BUN/CREATININE RATIO 25.5 (6-25); CALCIUM 9.8 mg/dL (8.5-10.1); CARBON DIOXIDE,CO2 21.4 mmol/L (21.0-32.0); CREATININE 0.94 mg/dL (0.70-1.30)
[2024-06-27 13:56] LABS: WHITE BLOOD CELL COUNT,WBC 2.7 K/uL (4.0-11.0)
[2024-06-27 13:57] LABS: ANION GAP 14.5 mmol/L (5.0-15.0)
[2024-06-27 13:59] LABS: POTASSIUM,K 2.9 mmol/L (3.5-5.1)
[2024-06-27 14:03] LABS: APPEARANCE,URINE CLEAR (CLEAR); BILIRUBIN,URINE NEGATIVE (NEGATIVE); GLUCOSE,URINE NEGATIVE (NEGATIVE); KETONES,URINE NEGATIVE (NEGATIVE); LEUKOCYTE ESTERASE,URINE NEGATIVE (NEGATIVE); NITRITE,URINE NEGATIVE (NEGATIVE); OCCULT BLOOD,URINE NEGATIVE (NEGATIVE); PH,URINE 6.5 (5.0-8.0); PROTEIN,URINE 100 mg/dL (NEGATIVE)
[2024-06-27 14:04] LABS: COLOR,URINE OTHER; WBC,URINE 0-5 /HPF
[2024-06-27 14:04] LABS: INFLUENZA A NAA NEGATIVE (NEGATIVE); INFLUENZA B NAA NEGATIVE (NEGATIVE); RESPIRATORY SYNCYTIAL VIR NAA NEGATIVE (NEGATIVE)
[2024-06-27 14:05] LABS: CORONAVIRUS COVID-19 NAA NEGATIVE (NEGATIVE)
[2024-06-27 14:05] LABS: FINE GRANULAR CASTS,URINE OCCASIONAL /HPF; SQUAMOUS EPITHELIAL CELLS,UR FEW /HPF
[2024-06-27] MEDS ORDERED: Ondansetron 4 MG/2 ML SDV IV PRN (14:08)
[2024-06-27] MEDS: cefTRIAXone 2 GM Vial IVPUSH STA (14:11)
[2024-06-27] MEDS: Potassium Chloride Riders 10 MEQ in Premix Bag 1 BAG IV ONE (14:17)
[2024-06-27] MEDS: cefTRIAXone 2 GM Vial ONE (14:20)
[2024-06-27] MEDS: Potassium Chloride Riders 50 ML ONE (14:21)
[2024-06-27] MEDS: Potassium Chloride 20 MEQ Tab.ER PO SCH (14:25)
[2024-06-27] MEDS: Aspirin 81 MG Tab.Chew PO SCH (14:26)
[2024-06-27] MEDS ORDERED: FLUCONAZOLE 200 MG PO SCH ×2 (15:57)
[2024-06-27] MEDS: FLUCONAZOLE 200 MG PO SCH (17:02)
[2024-06-28 08:40] LABS: ANION GAP 16.2 mmol/L (5.0-15.0); BUN/CREATININE RATIO 27.1 (6-25); CALCIUM 9.3 mg/dL (8.5-10.1); CREATININE 0.7 mg/dL (0.70-1.30); EST CRCL DRUG DOSING (CG) 93.12 mL/min; POTASSIUM,K 3.2 mmol/L (3.5-5.1)
[2024-06-28] MEDS: Heparin Sodium 5,000 Units/ML Vial SUBCUT SCH (09:44)
[2024-06-28] MEDS: cefTRIAXone 1 GM in Sodium Chloride 0.9% 50 ML IV SCH (09:45)
[2024-06-28] MEDS: Albuterol 0.083% 2.5 MG/3 ML Neb Soln NEB PRN (09:53)
[2024-06-28] MEDS: Albuterol/Ipratropium 3.0-0.5 MG/3 ML Neb Soln NEB SCH (11:12)
[2024-06-28] MEDS: Budesonide 0.5 MG/2 ML Neb Susp NEB SCH (11:12)
[2024-06-28] MEDS: Azithromycin 500 MG in Sodium Chloride 0.9% 250 ML IV SCH (12:45)
[2024-06-28] MEDS: FLUCONAZOLE 200 MG PO SCH (20:25)
[2024-06-29] MEDS ORDERED: Budesonide 0.5 MG/2 ML Neb Susp NEB PRN (09:01)
[2024-06-29 09:08] LABS: HEMATOCRIT 36.1 % (40.0-54.0); HEMOGLOBIN 12.9 g/dL (13.0-18.0); MEAN CORPUSCULAR HEMOGLOBIN 32.3 pg (27.0-32.0); MEAN CORPUSCULAR HGB CONC 35.7 g/dL (31.0-35.0); MEAN PLATELET VOLUME 8.6 fL (6.0-10.0); RED CELL DISTRIBUTION WIDTH 13.2 % (11.0-16.0); WHITE BLOOD CELL COUNT,WBC 5.1 K/uL (4.0-11.0)
[2024-06-29 09:18] LABS: BUN/CREATININE RATIO 17.8 (6-25); C-REACTIVE PROTEIN 123.9 mg/L (<5.0); CARBON DIOXIDE,CO2 19.4 mmol/L (21.0-32.0); CREATININE 0.73 mg/dL (0.70-1.30); EST CRCL DRUG DOSING (CG) 89.29 mL/min
[2024-06-29 09:28] LABS: ANION GAP 16.6 mmol/L (5.0-15.0)
[2024-06-29 10:46] LABS: CALCIUM 9.4 mg/dL (8.5-10.1)
[2024-06-29] MEDS: Nicotine 7 MG/24 Hr Patch TRDERM SCH (10:54)
[2024-06-29] MEDS: Acetaminophen/Codeine 300-30 MG Tab PO PRN (15:34)
[2024-06-29] MEDS: guaiFENesin/Dextromethorphan 100-10 MG/5 ML Soln 10 ML Cup PO PRN ×2 (15:35→20:08)
[2024-06-29] MEDS: Potassium Chloride 20 MEQ Tab.ER PO SCH (15:35)
[2024-06-30] MEDS: guaiFENesin/Dextromethorphan 100-10 MG/5 ML Soln 10 ML Cup ONE (09:43)
[2024-06-30 09:47] LABS: HEMATOCRIT 37.6 % (40.0-54.0); HEMOGLOBIN 13.4 g/dL (13.0-18.0); MEAN CORPUSCULAR HEMOGLOBIN 32.2 pg (27.0-32.0); MEAN CORPUSCULAR HGB CONC 35.6 g/dL (31.0-35.0); MEAN PLATELET VOLUME 8.4 fL (6.0-10.0); RED BLOOD CELL COUNT 4.16 M/uL (4.50-6.50); RED CELL DISTRIBUTION WIDTH 13.5 % (11.0-16.0); WHITE BLOOD CELL COUNT,WBC 6.3 K/uL (4.0-11.0)
[2024-06-30 10:00] LABS: ANION GAP 15.7 mmol/L (5.0-15.0); BUN/CREATININE RATIO 14.9 (6-25); C-REACTIVE PROTEIN 126.9 mg/L (<5.0); CALCIUM 9.5 mg/dL (8.5-10.1); CARBON DIOXIDE,CO2 20.8 mmol/L (21.0-32.0); CREATININE 0.74 mg/dL (0.70-1.30); EST CRCL DRUG DOSING (CG) 88.08 mL/min; MAGNESIUM 1.9 mg/dL (1.8-2.4); POTASSIUM,K 3.5 mmol/L (3.5-5.1)
[2024-06-30] MEDS: Albuterol/Ipratropium 3.0-0.5 MG/3 ML Neb Soln NEB PRN (10:44)
[2024-06-30] MEDS: Ciprofloxacin 0.3% Ophth Soln 2.5 ML Bottle EARBOTH SCH (12:05)
[2024-07-01] MEDS: Levofloxacin 500 MG Tab PO ONE (09:47)
[2024-07-01] MEDS: Acetaminophen/Codeine 300-30 MG Tab ONE (10:11)
[2024-07-01] MEDS: Levofloxacin 500 MG Tab ONE (10:11)
[2024-07-01] MEDS ORDERED: Acetaminophen/Codeine 300-30 MG Tab ONE (10:30)
[2024-07-01] MEDS ORDERED: Levofloxacin 500 MG Tab ONE (10:30)
== END 2024-07-01 10:32 | disposition home or self-care (01) | DRG 194 ==
LOC: LB.ED 11:40 → LB.MS 14:08
PROVIDERS: ADMIT Surgery; ATTEND Surgery
DX: J18.9 Pneumonia, unspecified organism (principal); D84.9 Immunodeficiency, unspecified; N39.0 Urinary tract infection, site not specified; D72.810 Lymphocytopenia; E87.6 Hypokalemia; I10 Essential (primary) hypertension; F41.9 Anxiety disorder, unspecified; J44.9 Chronic obstructive pulmonary disease, unspecified; E86.0 Dehydration; J32.9 Chronic sinusitis, unspecified; H60.93 Unspecified otitis externa, bilateral; H54.7 Unspecified visual loss; Z79.82 Long term (current) use of aspirin; Z79.899 Other long term (current) drug therapy; Z87.19 Personal history of other diseases of the digestive system; Z86.0100 Personal history of colon polyps, unspecified; Z87.81 Personal history of (healed) traumatic fracture; Z98.890 Other specified postprocedural states; Z85.72 Personal history of non-Hodgkin lymphomas; Z79.51 Long term (current) use of inhaled steroids
CPT/HCPCS: 0241U; 36415; 70450; 71045; 80048; 80053; 81001; 83605; 83735; 83880; 85025; 85027; 86140; 87040; 93005; 93010; 94640; 96360; 99222; 99232; 99238; 99285; A9270-GY; J0456; J0696; J1644; J3480; J3490; J7030; J7050; J7620

== ENCOUNTER 2025-05-30 12:45 | Emergency (ER) | payer MEDICARE, OTHER ==
[2025-05-30] MEDS ORDERED: Sodium Chloride 0.9% 10 ML Syringe FLUSH PRN (13:45)
[2025-05-30 14:02] LABS: BASOPHILS ABSOLUTE AUTO 0.03 K/uL (0.02-0.10); BASOPHILS PERCENT AUTO 0.7 % (0.0-0.5); EOSINOPHILS ABSOLUTE AUTO 0.11 K/uL (0.04-0.40); EOSINOPHILS PERCENT AUTO 2.5 % (1.0-5.0); LYMPHOCYTES ABSOLUTE AUTO 0.73 K/uL (1.50-4.00); LYMPHOCYTES PERCENT AUTO 16.6 % (20.0-40.0); MEAN PLATELET VOLUME 8.1 fL (6.0-10.0); MONOCYTES ABSOLUTE AUTO 0.47 K/uL (0.20-0.80); MONOCYTES PERCENT AUTO 10.7 % (3.0-10.0); NEUTROPHILS ABSOLUTE AUTO 3.07 K/uL (2.00-7.50); NEUTROPHILS PERCENT AUTO 69.5 % (45.0-70.0); PLATELET COUNT,PLT 227 K/uL (150-400); RED BLOOD CELL COUNT 3.99 M/uL (4.50-6.50); RED CELL DISTRIBUTION WIDTH 13.1 % (11.0-16.0); WHITE BLOOD CELL COUNT,WBC 4.4 K/uL (4.0-11.0)
[2025-05-30 14:16] LABS: INFLUENZA A NAA NEGATIVE (NEGATIVE)
[2025-05-30 14:17] LABS: CORONAVIRUS COVID-19 NAA NEGATIVE (NEGATIVE); INFLUENZA B NAA NEGATIVE (NEGATIVE)
[2025-05-30 14:33] LABS: A/G RATIO 0.6 (0.8-2.0); ALANINE AMINOTRANSFERASE,ALT 22.0 U/L (12-78); ASPARTATE AMNIOTRANSFERASE,AST 20.0 U/L (15-37); BILIRUBIN TOTAL 0.6 mg/dL (0.0-1.0); BLOOD UREA NITROGEN,BUN 16.0 mg/dL (8-26); CARBON DIOXIDE,CO2 19.8 mmol/L (21.0-32.0); CREATININE 0.9 mg/dL (0.70-1.30); EST CRCL DRUG DOSING (CG) 71.96 mL/min; ESTIMATED GFR 92.0 mL/min (>60); GLUCOSE RANDOM 197.0 mg/dL (74-100); PROTEIN TOTAL,TP 6.9 g/dL (6.4-8.2); TSH ULTRASENSITIVE 2.235 uIU/mL (0.358-3.740)
[2025-05-30 14:41] LABS: CHLORIDE,CL 97.0 mmol/L (98-107); POTASSIUM,K 3.6 mmol/L (3.5-5.1); SODIUM,NA 128.0 mmol/L (136-145)
[2025-05-30 14:43] LABS: APPEARANCE,URINE TURBID (CLEAR); GLUCOSE,URINE NEGATIVE (NEGATIVE); OCCULT BLOOD,URINE NEGATIVE (NEGATIVE)
[2025-05-30 14:55] LABS: FINE GRANULAR CASTS,URINE OCCASIONAL /HPF
[2025-05-30] MEDS ORDERED: metroNIDAZOLE/Normal Saline 500 MG in Premix Bag 1 BAG IV ONE (15:05)
[2025-05-30 15:14] LABS: SEDIMENTATION RATE MANUAL 82 mm/hr (0-20)
== END 2025-05-30 18:00 ==
LOC: LB.ED 12:45
DX: M60.9 Myositis, unspecified (principal); I10 Essential (primary) hypertension; F17.200 Nicotine dependence, unspecified, uncomplicated; Z79.82 Long term (current) use of aspirin; Z79.899 Other long term (current) drug therapy
CPT/HCPCS: 36415; 71045; 80053; 81001; 82550; 84443; 85025; 85651; 86140; 87636; 96360; 96361; 99284; 99284-25; J7040

== ENCOUNTER 2025-06-24 10:47 | Emergency (ER) | payer MEDICARE, OTHER ==
[2025-06-24] MEDS ORDERED: Sodium Chloride 0.9% 10 ML Syringe FLUSH PRN (11:42)
[2025-06-24 12:16] LABS: RED BLOOD CELL COUNT 3.12 M/uL (4.50-6.50); RED CELL DISTRIBUTION WIDTH 13.6 % (11.0-16.0); WHITE BLOOD CELL COUNT,WBC 3.3 K/uL (4.0-11.0)
[2025-06-24 12:33] LABS: PLATELET COUNT,PLT 28 K/uL (150-400)
[2025-06-24 12:45] LABS: LACTIC ACID 1.4 mmol/L (0.4-2.0)
[2025-06-24 12:48] LABS: A/G RATIO 0.7 (0.8-2.0); ALANINE AMINOTRANSFERASE,ALT 29.0 U/L (12-78); ASPARTATE AMNIOTRANSFERASE,AST 25.0 U/L (15-37); BILIRUBIN TOTAL 2.5 mg/dL (0.0-1.0); CARBON DIOXIDE,CO2 24.4 mmol/L (21.0-32.0); CHLORIDE,CL 95.0 mmol/L (98-107); CREATININE 1.91 mg/dL (0.70-1.30); EST CRCL DRUG DOSING (CG) 35.79 mL/min; ESTIMATED GFR 37.0 mL/min (>60); GLUCOSE RANDOM 193.0 mg/dL (74-100); PHOSPHORUS 3.6 mg/dL (2.5-4.9); POTASSIUM,K 3.6 mmol/L (3.5-5.1); PROTEIN TOTAL,TP 5.5 g/dL (6.4-8.2); SODIUM,NA 130.0 mmol/L (136-145); TROPONIN I HIGH SENSITIVITY 14.2 pg/ml (<=60.4)
[2025-06-24 12:54] LABS: BLOOD UREA NITROGEN,BUN 86.0 mg/dL (8-26)
[2025-06-24 16:06] LABS: APPEARANCE,URINE SLIGHTLY CLOUDY (CLEAR); GLUCOSE,URINE NEGATIVE (NEGATIVE); OCCULT BLOOD,URINE MODERATE (NEGATIVE)
[2025-06-24 16:10] LABS: SQUAMOUS EPITHELIAL CELLS,UR RARE /HPF
== END 2025-06-24 16:51 ==
LOC: LB.ED 10:47
DX: J90 Pleural effusion, not elsewhere classified (principal); J18.9 Pneumonia, unspecified organism; R18.8 Other ascites; E87.1 Hypo-osmolality and hyponatremia; D72.810 Lymphocytopenia; I10 Essential (primary) hypertension; Z79.899 Other long term (current) drug therapy
CPT/HCPCS: 36415; 71045; 71250; 74176; 80053; 81001; 83605; 83735; 84100; 84484; 85027; 86140; 87040; 93005; 96361; 96374; 99285; J7030; P9047